=== PATIENT | male | born 1940 | race Caucasian/White ===

== ENCOUNTER 2017-04-07 05:50 | Day surgery (SDC) | payer MEDICARE, BC ==
[2017-04-07] MEDS ORDERED: Lactated Ringers 1,000 ML IV SCH (07:00)
[2017-04-07] MEDS ORDERED: Versed 2 MG/2 ML Injection IV ONE (08:00)
[2017-04-07] MEDS ORDERED: DIPRIVAN 200 MG/20 ML IV ONE (08:00)
--- NOTE | 2017-04-07 09:31 | OP ---
SURGERY DATE: 04/07/17 SURGERY TIME: 755 PREOPERATIVE DIAGNOSIS: 1. SCREENING EXAM. POSTOPERATIVE DIAGNOSIS: 1. SMALL POLYP. 2. SIGMOID DIVERTICULOSIS. PROCEDURE: 1. Colonoscopy with biopsy. SURGEON: Dr. Paz. ANESTHESIA: MAC. Medications given by the Anesthesia Department. BRIEF HISTORY: The patient is a 77 y/o WM patient presenting now for a screening colonoscopy. He was appraised of the risks of the procedure including the risk of perforation, phlebitis, untoward reaction to medication, bleeding, and missed lesions. The patient verbalized his understanding and desired to have the procedure performed. DESCRIPTION OF PROCEDURE: The patient was given the medications by the Anesthesia Department. He had continuous pulse oximetry, ECG monitoring, intermittent BP monitoring, and end tidal CO2 monitoring during the examination. He was placed in the left lateral decubitus position. A digital rectal examination was performed and revealed normal anal sphincter tone, no masses, and a normal prostate. The flexible Olympus pediatric colonoscope was used to intubate the rectum. A view of the colon was developed sequentially to the cecum. Upon insertion and withdrawal, including a retroflex view in the rectum, was noted 1 small polyps in the transverse colon. This was biopsied using cold biopsy technique. There was noted also to be mild sigmoid diverticulosis. Otherwise, no other mucosal lesions were encountered. The scope was removed from the patient who tolerated the procedure well and was sent back to OP recovery in good condition. The prep was noted to be fair to good.
[2017-04-07 10:59] VITALS: PULSE 63; O2SAT 94
[2017-04-07 11:07] VITALS: BP 115/64
== END 2017-04-07 10:00 | disposition home or self-care (01) ==
LOC: SDC 05:50
PROVIDERS: ATTEND Family Medicine
PROC: 0DBL8ZX Excision of Transverse Colon, Via Natural or Artificial Opening Endoscopic, Diagnostic (ICD-10-PCS; principal; 2017-04-07)
DX: D12.3 Benign neoplasm of transverse colon (principal); Z12.11 Encounter for screening for malignant neoplasm of colon; K57.30 Diverticulosis of large intestine without perforation or abscess without bleeding
CPT/HCPCS: 00810; 36415; 88305; 99100; J2250; J2704

== ENCOUNTER 2018-11-26 12:05 | Observation (INO) | payer MEDICARE, BC ==
[2018-11-26] MEDS ORDERED: Nitrostat 0.4 MG (ED) SL ONE ×2 (12:46→13:32)
[2018-11-26] MEDS ORDERED: BABY ASPIRIN 81 MG CHEW PO ONE (12:46)
[2018-11-26] MEDS ORDERED: NITRO-BID 2% UD PACKETS TOP ONE (12:46)
--- NOTE | 2018-11-26 12:49 | ERPHSYRPT ---
- History of Present Illness Time Seen by Provider: 11/26/18 12:34 Historian: patient Exam Limitations: clinical condition Patient Subjective Stated Complaint: pt brought from [facility] for pain to left side of chest that radiates up neck and down left arm, pt had bypass 2 months ago and is in cardiac rehab, he states pain started 3 days ago getting worse gradually, co slight sob with pain Triage Nursing Assessment: pt alert, arrived per wc, resp easy, skin w/d/p. chest clear, slight edema to lower legs Physician History: PATIENT WITH A HISTORY OF HYPERTENSION, TYPE 2 DIABETES, CORONARY ARTERY DISEASE , PREVIOUS CORONARY ARTERY BYPASS GRAFTS 2009, RECENT STENT 09/2018 COMPLAINS OF CHEST PAIN SHARP DISCOMFORT WHILE IN CARDIAC REHAB TODAY, HAS RADIATION OF PAIN TO LEFT ARM, PAIN SCALE 7/10. DENIES ASSOCIATED DIAPHORESIS AND PALPITATIONS. HAS OCCASIONAL DYSPNEA. Timing/Duration: today Activities at Onset: activity Quality: sharpness, stabbing Location: substernal Chest Pain Radiation: arm Severity of Pain-Max: moderate Severity of Pain-Current: moderate Modifying Factors: Improves With: nothing Associated Symptoms: denies symptoms Prior Chest Pain/Cardiac Workup: cardiac cath Nitro Today/Relief: no nitro taken today Aspirin Treatment Today: 81 mg x 4, provided by ED Allergies/Adverse Reactions: No Known Drug Allergies Allergy (Verified 11/26/18 12:17) Home Medications: Aspirin [Aspir-Low] 81 mg PO DAILY 06/15/16 [History] Metformin HCl 500 mg [Glucophage 500 MG] 500 mg PO BID 06/15/16 [History] Potassium Chloride 10 Meq Tab* [Klor Con 10 MEQ] 20 meq PO DAILY 06/15/16 [ History] Vitamin B Complex 1 each PO DAILY 04/03/17 [History] Atorvastatin Calcium [Lipitor] 40 mg DAILY 11/26/18 [History] Carvedilol 3.125 mg [Coreg 3.125 MG] 3.125 mg DAILY 11/26/18 [History] Clopidogrel Bisulfate [Clopidogrel] 75 mg DAILY 11/26/18 [History] Famotidine 20 mg [Pepcid 20 MG] 20 mg DAILY 11/26/18 [History] Glipizide [Glipizide ER] 5 mg DAILY 11/26/18 [History] Hx Tetanus, Diphtheria Vaccination/Date Given: Yes Hx Influenza Vaccination/Date Given: Yes Hx Pneumococcal Vaccination/Date Given: Yes Immunizations Up to Date: No - Review of Systems Constitutional: No Fever, No Chills Eyes: No Symptoms Ears, Nose, & Throat: No Symptoms Respiratory: No Symptoms, No Cough, No Dyspnea Cardiac: No Chest Pain, No Edema, No Syncope Abdominal/Gastrointestinal: No Abdominal Pain, No Nausea, No Vomiting, No Diarrhea Genitourinary Symptoms: No Symptoms, No Dysuria Musculoskeletal: No Symptoms, No Back Pain, No Neck Pain Skin: No Rash Neurological: No Dizziness, No Focal Weakness, No Sensory Changes Psychological: No Symptoms Endocrine: No Symptoms All Other Systems: Reviewed and Negative - Past Medical History Pertinent Past Medical History: Yes Neurological History: Migraines ENT History: No Pertinent History Cardiac History: Coronary Artery Disease, Hypertension, Myocardial Infarction ( [place]) Respiratory History: No Pertinent History Endocrine Medical History: Diabetes Type II Musculoskeletal History: Arthritis GI Medical History: GERD History: No Pertinent History Psycho-Social History: No Pertinent History Male Reproductive Disorders: No Pertinent History - Past Surgical History Past Surgical History: Yes Neuro Surgical History: No Pertinent History Cardiac: CABG, Cardiac Catheterization, Cardiac Stent Respiratory: No Pertinent History Gastrointestinal: Cholecystectomy Genitourinary: No Pertinent History Musculoskeletal: No Pertinent History, Other Male Surgical History: No Pertinent History Other Surgical History: BACK SURGERY-- - Social History Smoking Status: Never smoker Exposure to second hand smoke: No Drug Use: none Patient Lives Alone: No - Nursing Vital Signs Nursing Vital Signs: Initial Vital Signs Pulse Rate 100 H 11/26/18 12:08 Pain Scale Pain Intensity 6 - Physical Exam General Appearance: no apparent distress, alert Eye Exam: PERRL/EOMI, eyes nml inspection Ears, Nose, Throat Exam: normal ENT inspection, moist mucous membranes Neck Exam: normal inspection, non-tender, supple, full range of motion Respiratory Exam: normal breath sounds, lungs clear, No respiratory distress Cardiovascular Exam: regular rate/rhythm, normal heart sounds Gastrointestinal/Abdomen Exam: soft, normal bowel sounds, No tenderness, No mass Back Exam: normal inspection, No CVA tenderness, No vertebral tenderness Extremity Exam: normal inspection, normal range of motion Neurologic Exam: alert, oriented x 3, cooperative, normal mood/affect, sensation nml, No motor deficits Skin Exam: normal color, warm, dry - Course EKG Interpreted by Me: RATE, Sinus Rhythm, Right [place] Deviation, 1st degree AV Block - Radiology Exams Chest X-ray Interpretation: Discussed w/ radiologist, Negative Ordered Tests: Active Orders 24 hr Category Date Time Status Bench Worker Apprentice STAT Care 11/26/18 12:47 Active EKG-ER Only STAT Care 11/26/18 12:46 Active Oxygen-ED Only Nasal Cannula 2 lpm Care 11/26/18 12:46 Active CHEST 1 VIEW (PORTABLE) Stat Exams 11/26/18 12:46 Completed CHEST WITH CONTRAST [CT] Stat Exams 11/26/18 13:39 Completed CBC W DIFF Stat Lab 11/26/18 12:30 Completed CMP Stat Lab 11/26/18 12:30 Completed D-DIMER QUANTITATION Stat Lab 11/26/18 12:30 Completed MAGNESIUM Stat Lab 11/26/18 12:30 Completed NT PRO BNP Stat Lab 11/26/18 12:30 Completed PROTIME WITH INR Stat Lab 11/26/18 12:30 Completed TROPONIN Q3H Lab 11/26/18 12:30 Completed TROPONIN Q3H Lab 11/26/18 15:55 Completed TROPONIN Q3H Lab 11/26/18 19:00 Ordered TROPONIN Q3H Lab 11/26/18 22:00 Ordered TROPONIN Q3H Lab 11/27/18 01:00 Ordered Medication Summary Generic Name Dose Route Start Last Admin Trade Name Freq PRN Reason Stop Dose Admin Sodium Chloride 1,000 mls @ 20 mls/hr 11/26/18 13:00 11/26/18 13:35 Sodium Chloride 0.9% 1000 Ml IV 12/26/18 12:59 20 mls/hr .Q24H GLORIA Administration Discontinued Medications Generic Name Dose Route Start Last Admin Trade Name Freq PRN Reason Stop Dose Admin Aspirin 324 mg 11/26/18 12:46 11/26/18 13:34 Baby Aspirin 81 Mg Chew PO 11/26/18 12:47 324 mg STAT ONE Administration Aspirin Confirm 11/26/18 13:32 Baby Aspirin 81 Mg Chew Administered 11/26/18 13:33 Dose 324 mg .ROUTE .STK-MED ONE Nitroglycerin 0.4 mg 11/26/18 12:46 11/26/18 13:34 Nitrostat 0.4 Mg (Ed) SL 11/26/18 12:47 0.4 mg STAT ONE Administration Nitroglycerin 1 gm 11/26/18 12:46 11/26/18 13:35 Nitro-Bid 2% Ud Packets TOP 11/26/18 12:47 1 gm STAT ONE Administration Nitroglycerin Confirm 11/26/18 13:32 Nitro-Bid 2% Ud Packets Administered 11/26/18 13:33 Dose 1 gm .ROUTE .STK-MED ONE Nitroglycerin Confirm 11/26/18 13:32 Nitrostat 0.4 Mg (Ed) Administered 11/26/18 13:33 Dose 0.4 mg SL .STK-MED ONE Lab/Rad Data: Laboratory Result Diagrams 11/26/18 12:30 11/26/18 12:30 Laboratory Results 11/26/18 11/26/18 11/26/18 Range/Units 15:55 12:30 12:30 WBC (4.0-10.5) K/mm3 RBC (4.1-5.6) M/mm3 Hgb (12.5-18.0) gm/dl Hct (42-50) % MCV (78-100) fl MCH (26-32) pg MCHC (32-36) g/dl RDW (11.5-14.0) % Plt Count (150-450) K/mm3 MPV (6-9.5) fl Gran % (36.0-66.0) % Eos # (Auto) (0-0.5) Absolute Lymphs (auto) (1.0-4.6) Absolute Monos (auto) (0.0-1.3) Lymphocytes % (24.0-44.0) % Monocytes % (0.0-12.0) % Eosinophils % (0.00-5.0) % Basophils % (0.0-0.4) % Absolute Granulocytes (1.4-6.9) Basophils # (0-0.4) PT 13.6 H (8.83-12.87) SECONDS INR 1.17 (0.8-3.0) D-Dimer 582 H* (215-500) ng/mL Sodium (137-145) mmol/L Potassium (3.5-5.1) mmol/L Chloride (98-107) mmol/L Carbon Dioxide (22-30) mmol/L Anion Gap (5-15) MEQ/L BUN (9-20) mg/dL Creatinine (0.66-1.25) mg/dL Estimated GFR ML/MIN Glucose (74-106) mg/dL Calcium (8.4-10.2) mg/dL Magnesium (1.6-2.3) mg/dL Total Bilirubin (0.2-1.3) mg/dL AST (17-59) U/L ALT (0-50) U/L Alkaline Phosphatase (38-126) U/L Troponin I 0.026 0.012 (0.000-0.034) ng/mL NT-Pro-B Natriuret Pep (0-1800) pg/mL Serum Total Protein (6.3-8.2) g/dL Albumin (3.5-5.0) g/dL 11/26/18 11/26/18 Range/Units 12:30 12:30 WBC 5.8 (4.0-10.5) K/mm3 RBC 4.16 (4.1-5.6) M/mm3 Hgb 13.1 (12.5-18.0) gm/dl Hct 40.2 L (42-50) % MCV 96.6 (78-100) fl MCH 31.5 (26-32) pg MCHC 32.6 (32-36) g/dl RDW 13.0 (11.5-14.0) % Plt Count 140 L (150-450) K/mm3 MPV 10.3 H (6-9.5) fl Gran % 55.3 (36.0-66.0) % Eos # (Auto) 0.30 (0-0.5) Absolute Lymphs (auto) 1.56 (1.0-4.6) Absolute Monos (auto) 0.71 (0.0-1.3) Lymphocytes % 27.0 (24.0-44.0) % Monocytes % 12.3 H (0.0-12.0) % Eosinophils % 5.2 H (0.00-5.0) % Basophils % 0.2 (0.0-0.4) % Absolute Granulocytes 3.20 (1.4-6.9) Basophils # 0.01 (0-0.4) PT (8.83-12.87) SECONDS INR (0.8-3.0) D-Dimer (215-500) ng/mL Sodium 139 (137-145) mmol/L Potassium 4.4 (3.5-5.1) mmol/L Chloride 104 (98-107) mmol/L Carbon Dioxide 23 (22-30) mmol/L Anion Gap 16.6 H (5-15) MEQ/L BUN 17 (9-20) mg/dL Creatinine 1.16 (0.66-1.25) mg/dL Estimated GFR > 60.0 ML/MIN Glucose 180 H (74-106) mg/dL Calcium 9.4 (8.4-10.2) mg/dL Magnesium 1.9 (1.6-2.3) mg/dL Total Bilirubin 0.80 (0.2-1.3) mg/dL AST 55 (17-59) U/L ALT 50 (0-50) U/L Alkaline Phosphatase 135 H (38-126) U/L Troponin I (0.000-0.034) ng/mL NT-Pro-B Natriuret Pep 1020 (0-1800) pg/mL Serum Total Protein 7.3 (6.3-8.2) g/dL Albumin 4.1 (3.5-5.0) g/dL - Progress Progress Note: 11/26/18 16:47 ADMINISTERED ASPIRIN 81MG X 4, NTG 0.4MG SL, MARKED RELIEF IN PAIN, 1 INCH NITROPASTE APPLIED TO CHEST WALL Discussed with : Jackson (DISCUSSED WITH DR MAIN [id number] FOR OBSERVATION) - Departure Time of Disposition: 16:51 Departure Disposition: Observation Clinical Impression: ACUTE CHEST PAIN Condition: Stable Critical Care Time: No Referrals: RIANNA MAIN [Primary Care Provider] -
[2018-11-26] MEDS ORDERED: Sodium Chloride 0.9% 1000 ML 1,000 ML IV SCH (13:00)
[2018-11-26 13:14] LABS: INR 1.17 (0.8-3.0); PROTIME 13.6 SECONDS (8.83-12.87)
[2018-11-26 13:18] LABS: BASOPHIL % 0.2 % (0.0-0.4); Basophil (Absolute #) 0.01 (0-0.4); Eosinophil % 5.2 % (0.00-5.0); Granulocytes % 55.3 % (36.0-66.0); Hematocrit 40.2 % (42-50); Hemoglobin 13.1 gm/dl (12.5-18.0); Lymphocyte (Absolute #) 1.56 (1.0-4.6); Mean Cell Volume 96.6 fl (78-100); Mean Corpuscular Hemoglobin 31.5 pg (26-32); Mean Corpuscular Hgb Concent. 32.6 g/dl (32-36); Mean Platelet Volume 10.3 fl (6-9.5); Monocyte (Absolute #) 0.71 (0.0-1.3); Monocytes % 12.3 % (0.0-12.0); Platelet Count 140 K/mm3 (150-450); Red Blood Count 4.16 M/mm3 (4.1-5.6); White Blood Count 5.8 K/mm3 (4.0-10.5)
[2018-11-26 13:27] LABS: ALBUMIN 4.1 g/dL (3.5-5.0); ALKALINE PHOSPHATASE 135 U/L (38-126); ANION GAP 16.6 MEQ/L (5-15); BLOOD UREA NITROGEN 17 mg/dL (9-20); CHLORIDE 104 mmol/L (98-107); Calcium 9.4 mg/dL (8.4-10.2); Carbon Dioxide 23 mmol/L (22-30); Creatinine 1 1.16 mg/dL (0.66-1.25); Glucose 180 mg/dL (74-106); MAGNESIUM 1.9 mg/dL (1.6-2.3); NT PRO BNP 1020 pg/mL (0-1800); Potassium 4.4 mmol/L (3.5-5.1); SGOT/AST 55 U/L (17-59); SGPT/ALT 50 U/L (0-50); SODIUM 139 mmol/L (137-145); Total Protein 7.3 g/dL (6.3-8.2)
[2018-11-26] MEDS ORDERED: BABY ASPIRIN 81 MG CHEW ONE (13:32)
[2018-11-26] MEDS ORDERED: Sodium Chloride 0.9% 1000 ML 1,000 ML ONE (13:32)
[2018-11-26] MEDS ORDERED: NITRO-BID 2% UD PACKETS ONE (13:32)
--- NOTE | 2018-11-26 13:34 | XRAY ---
Indication: Chest pain. Comparison: April 05, 2014. Portable chest remains clear with incidental right midlung calcified granuloma. Heart is not enlarged again with CABG surgery. Bony thorax intact again with mild degenerative changes. Impression: Stable nonacute chest with chronic features.
--- NOTE | 2018-11-26 14:43 | XRAY ---
Indication: Left chest and left arm pain. Elevated d-dimer. Recent cardiac stent placement. Multiple contiguous axial images obtained through the chest using 80 cc Isovue 370 contrast and PE protocol. Comparison: None There is good opacification of the pulmonary arteries to include lobar and segmental branches. No filling defect or pulmonary embolus. Heart is not enlarged and demonstrates previous CABG surgery. Aorta is mildly atherosclerotic without aneurysm/dissection. Distal aorta is tortuous. Tiny right hilar calcified nodes. No pathologic mediastinal/hilar lymphadenopathy. Small hiatal hernia. Examination of the lung parenchyma demonstrates mild scattered bilateral fibrosis/scarring. Small right upper lobe calcified granuloma. No suspicious pulmonary mass, infiltrate, or effusion. Bony thorax intact with mild/moderate degenerative changes throughout the spine. Limited upper abdomen demonstrates cirrhotic appearing liver without ascites, 12.5 cm splenomegaly, and cholecystectomy clips. Impression: 1. Negative pulmonary embolus. No acute cardiopulmonary abnormalities. 2. Scattered fibrosis/scarring and evidence for old granulomatous disease. 3. Incidental small hiatal hernia, cirrhotic appearing liver, and splenomegaly. CT DI 22.97
[2018-11-26] MEDS ORDERED: MILK OF MAGNESIA 30 ML PO PRN (16:49)
[2018-11-26] MEDS ORDERED: MAALOX ES 30 ML UNIT DOSE PO PRN (16:49)
[2018-11-26] MEDS ORDERED: Senokot-S Tablet PO PRN (16:49)
[2018-11-26] MEDS ORDERED: Nitrostat 0.4 MG Tablet SL PRN (16:49)
[2018-11-26] MEDS ORDERED: TYLENOL 325 MG PO PRN (16:49)
[2018-11-26] MEDS ORDERED: Zofran 4 MG/2 ML VIAL IV PRN (16:49)
[2018-11-26] MEDS ORDERED: MORPHINE SULFATE 2 MG INJ IV PRN (16:52)
[2018-11-26] MEDS ORDERED: HOLD METFORMIN PRODUCTS FOR 48 HOURS MC SCH (17:30)
[2018-11-26] MEDS ORDERED: NovoLOG Insulin SQ PRN (17:57)
[2018-11-26] MEDS ORDERED: Pepcid 20 MG PO SCH (22:00)
[2018-11-26] MEDS: Coreg 3.125 MG PO SCH (22:25)
[2018-11-27] MEDS ORDERED: Glucotrol Xl 5 MG PO SCH (09:00)
[2018-11-27] MEDS ORDERED: Klor Con 10 MEQ PO SCH (10:00)
[2018-11-27] MEDS ORDERED: Ecotrin 325 MG PO SCH (10:00)
[2018-11-27] MEDS ORDERED: ECOTRIN 81 MG PO SCH (10:00)
[2018-11-27] MEDS ORDERED: PLAVIX 75 MG Tablet PO SCH (10:00)
[2018-11-27] MEDS ORDERED: Pepcid 20 MG PO SCH (10:00)
[2018-11-27] MEDS ORDERED: Coreg 3.125 MG PO SCH (10:00)
[2018-11-27] MEDS ORDERED: ZOCOR 20MG PO SCH (10:00)
[2018-11-27] MEDS: Coreg 3.125 MG PO SCH (11:27)
--- NOTE | 2018-11-27 14:03 | PCM.NOTE ---
Date and Time: 11/27/18 1358 Subjective Assessment: Patient reports he slept a little bit last night. He had some ankle cramps. He continues to have some soreness in his shoulders bilat. He ate some breakfast and denies any dyspnea or nausea. - Review of Systems Constitutional: No Symptoms Eyes: No Symptoms Ears, Nose, & Throat: No Symptoms Respiratory: No Symptoms Cardiac: No Symptoms Abdominal/Gastrointestinal: No Symptoms Genitourinary Symptoms: No Symptoms Musculoskeletal: Other (left shoulder pain) Skin: No Symptoms Objective Exam General Appearance: no apparent distress, alert, other ( at bedside) Neurologic Exam: alert, cooperative, normal mood/affect Skin Exam: normal color, warm, dry Respiratory Exam: normal breath sounds, No lungs clear, No crackles/rales, No rhonchi, No wheezing Cardiovascular Exam: regular rate/rhythm, normal heart sounds, No murmur, No friction rub, No gallop Gastrointestinal/Abdomen Exam: soft, normal bowel sounds, No tenderness, No distention, No mass, No guarding Extremity Exam: normal inspection, other (no c/c/e) OBJECTIVE DATA Vital Signs: Vital Signs - 24 hr Temp Pulse Resp BP Pulse Ox 11/27/18 12:21 96 11/27/18 12:00 97.6 F 50 L 16 150/75 97 11/27/18 08:00 97.6 F 46 L 16 106/53 95 11/27/18 04:20 97.7 F 54 L 24 114/65 94 L 11/27/18 00:14 97.6 F 58 L 16 111/62 97 11/26/18 21:32 96 11/26/18 20:00 97.3 F 64 16 110/64 96 11/26/18 17:13 97.6 F 51 L 20 119/89 96 11/26/18 16:49 97.6 F 51 L 20 119/89 96 11/26/18 15:53 76 18 113/75 98 Pain Assessment - Last Documented Pain Intensity 2 Pain Scale Used 0-10 Pain Scale Intake and Output: Intake & Output 11/25/18 11/26/18 11/27/18 11/28/18 06:59 06:59 06:59 06:59 Intake Total 960 480 Output Total 425 Balance 535 480 Weight 90.8 kg Lab Results: Accuchecks Date 11/27/18 Date 11/26/18 Time 07:30 Time 22:00 Accucheck Value: 96 Accucheck Value: 184 Lab Results-Last 24 Hours 11/26/18 11/26/18 11/26/18 Range/Units 15:55 19:00 22:20 Hemoglobin A1c (4.5-6.0) % Troponin I 0.026 0.042 H* 0.050 H* (0.000-0.034) ng/mL Triglycerides (30-150) mg/dL Cholesterol (50-200) mg/dL LDL Cholesterol (30-100) mg/dL HDL Cholesterol (40-60) mg/dL Heart Disease Risk Ratio 11/26/18 11/27/18 11/27/18 Range/Units Unknown 01:05 05:30 Hemoglobin A1c 6.47 H (4.5-6.0) % Troponin I 0.048 H* (0.000-0.034) ng/mL Triglycerides 75 (30-150) mg/dL Cholesterol 86 (50-200) mg/dL LDL Cholesterol 39 (30-100) mg/dL HDL Cholesterol 44 (40-60) mg/dL Heart Disease Risk Ratio 2.0 Radiology Exams: Radiology Procedures Category Date Time Status CHEST 1 VIEW (PORTABLE) Stat Exams 11/26/18 12:46 Completed CHEST WITH CONTRAST [CT] Stat Exams 11/26/18 13:39 Completed Assessment/Plan (1) Non-STEMI (non-ST elevated myocardial infarction) Current Visit: Yes Status: Acute Assessment & Plan: Pain has improved. Discussed earlier today with the phlebotomist associate covering for Dr. Pearson, Dr. Rayshawn Sanchez. He recommended starting Ranexa to try to prevent chest pain and close follow up with Dr. Pearson. He reported with his current troponin level, he would not suggest a heart cath emergently. Patient is aware that the covering phlebotomist associate does not come to this hospital. Pt had some more pain in his left upper arm after the nitro paste was removed so will check another troponin. If it is still trending down, will try to discharge to home with close follow up with phlebotomist associate and to return to ER if any worsening symptoms or concerns. EKG this AM with HR 47, Q waves II, III, avF and nonspecific T-wave changes. Continue statin and plavix and beta raymundo. Code(s): I21.4 - NON-ST ELEVATION (NSTEMI) MYOCARDIAL INFARCTION (2) Essential hypertension Current Visit: Yes Status: Acute Assessment & Plan: Well controlled. Code(s): I10 - ESSENTIAL (PRIMARY) HYPERTENSION (3) Mixed hyperlipidemia Current Visit: Yes Status: Acute Assessment & Plan: Very well controlled. Code(s): E78.2 - MIXED HYPERLIPIDEMIA (4) DM w/o complication type II Current Visit: Yes Status: Acute Assessment & Plan: Well controlled. Code(s): E11.9 - TYPE 2 DIABETES MELLITUS WITHOUT COMPLICATIONS
[2018-11-27 16:42] VITALS: BP 129/71; PULSE 52; O2SAT 97
[2018-11-27] MEDS ORDERED: Ranexa 500 MG PO SCH (22:00)
--- NOTE | 2018-11-29 10:18 | HP ---
HISTORY OF PRESENT ILLNESS: This is a 78 year-old patient of Dr. Paz'rizwana who presented to the emergency department today after being in cardiac rehab where he developed some left upper arm pain as well as pain into the left side of his neck and back, down to the left side of his chest. Employees in cardiac rehab suggested he go to [facility] but they brought him to the emergency department. The patient states the pain is better now that Nitro seemed to help that they gave him in the emergency room and then also he has Nitro paste in place. He has a significant history of coronary artery disease with a bypass around 2009 and another one in 2016, stents most recently placed 10/18/2018 by a fuel cell engineer at [facility] who was covering for Dr. Pearson and Dr. Rayshawn Sanchez at [facility]. His who is at the bedside reports that one artery was 100% blocked and they could not get to it and told him it was rerouting on its own. He does cardiac rehab from 1100 hours to 12 in the morning and started to have pain at the end of this rehab. He reports his pain is worse when he tries to lift his left arm up. He also has a little bit of pain in his right shoulder as well but notes that he had rotator cuff problems with that shoulder eight to nine years ago. REVIEW OF SYSTEMS: He denies any fever. No cough. No nausea. No diaphoresis. He had a little bit of dyspnea. No abdominal pain. PAST MEDICAL HISTORY: Coronary artery disease, hypertension, diabetes mellitus type 2, arthritis, gastroesophageal reflux disease. PAST SURGICAL HISTORY: Cholecystectomy, coronary artery bypass graft x2, cardiac stents, back surgery. MEDICATIONS: Please see the medication reconciliation form which I reviewed. ALLERGIES: NKDA. SOCIAL HISTORY: He smoked a little bit when he was a teenager. He was exposed to secondhand smoke from a previous . He denies any alcohol use. He has been to his current for three years. FAMILY HISTORY: His mother is and had cancer. His father is and had cancer and heart problems. He has a 52 year-old daughter who is living that has cancer. PHYSICAL EXAMINATION: VITAL SIGNS: Temperature current 97.3F, temperature max 97.6F, heart rate 51 to 82, respiratory rate 16 to 20, blood pressure 110 to 132 over 64 to 89, weight 89.6 kg. Oxygen saturation 96 to 98% on room air. GENERAL: The patient is a pleasant talkative man lying in bed in no acute distress. His is at the bedside. CVS: He has a regular rate and rhythm. No murmurs, gallops or rubs are appreciated. CHEST: Clear to auscultation bilaterally. No crackles or wheezes. ABDOMEN: Soft, nontender, nondistended with normal bowel sounds. EXTREMITIES: No clubbing, cyanosis or edema. He has +2 radial and dorsalis pedis pulses bilaterally. Strength is 5/5 in hands and feet bilaterally. SKIN: Warm, dry and intact. LABORATORY DATA AND TESTS: PLT count was 140,000. International normalized ratio 1.17. D-dimer 582. CMP glucose 180. Hemoglobin A1C 6.47. He has had three troponins, the first was 0.012, second 0.026 and the last 0.042. His EKG sinus bradycardia with a first degree AV block, nonspecific T-wave changes, T-wave inversions in II, III and aVF, T-wave flattened in V4-V6. Chest CT was negative for pulmonary embolism. Please see the radiologist report for full details. Chest x-ray was read as stable nonacute chest with chronic features. ASSESSMENT AND PLAN: 1) CHEST PAIN: He is currently on chest pain pathway. His last troponin was slightly elevated. I asked the nurses to call the fuel cell engineer covering for his fuel cell engineer. The patient regularly sees Dr. Pearson but Dr. Rayshawn Sanchez was covering. He instructed the nurse to call back if the troponin was greater than 0.5. The patient reports his pain is fairly well controlled and a 1 on a scale from 0 to 10 with 10 being the worst pain. Nitro is in place and he is tolerating this well. The patient has had aspirin. He is on a beta raymundo and a statin. He also takes Plavix daily. 2) ELEVATED TROPONIN: This could be due to damage to his heart muscles such as non-ST elevation myocardial infarction or increased strain on his heart during cardiac rehab, will continue to follow to see if this is trending up or down. I discussed with the patient that Dr. Rayshawn Sanchez does not come to this hospital but has been contacted and at this time is comfortable with him staying here at the hospital and being contacted if his troponin goes above 0.5. I offered transfer to the patient if he wanted to see a fuel cell engineer face to face but the patient prefers to stay here at this time. 3) DIABETES MELLITUS TYPE 2: Currently well controlled, will hold his metformin since he had CT scan with IV contrast and use low dose sliding scale of insulin. 4) ARTHRITIS: He has Tylenol ordered as needed that he can take. 5) HYPERTENSION: His blood pressure is currently well controlled.
== END 2018-11-27 17:40 | disposition home or self-care (01) ==
LOC: ED 12:05 → MED SURG 17:08
PROVIDERS: ADMIT Family Medicine; ATTEND Family Medicine
DX: I21.4 Non-ST elevation (NSTEMI) myocardial infarction (principal); R77.8 Other specified abnormalities of plasma proteins; E11.9 Type 2 diabetes mellitus without complications; M19.90 Unspecified osteoarthritis, unspecified site; I10 Essential (primary) hypertension; M25.512 Pain in left shoulder; M25.511 Pain in right shoulder; E78.2 Mixed hyperlipidemia; Z95.1 Presence of aortocoronary bypass graft; Z79.899 Other long term (current) drug therapy
CPT/HCPCS: 36415; 71045; 71260; 80053; 80061; 82962; 83036; 83721; 83735; 83880; 84484; 85025; 85379; 85610; 93005; 93041; 93268; 94760; 96360; 96361; 99285; G0378; A9270-GY

== ENCOUNTER 2021-10-31 11:45 | Day surgery (SDC) | payer MEDICARE, BC ==
--- NOTE | 2021-10-31 07:41 | HP ---
DATE OF SURGERY: 10/31/2021 HISTORY OF PRESENT ILLNESS: The patient presents with complaints of a left breast mass. It is palpable on physical exam. The patient had some tenderness to this area for a few months. PAST MEDICAL HISTORY: Coronary artery disease, cardiac stent, coronary artery bypass graft, hypertension, hyperlipidemia, diabetes. PAST SURGICAL HISTORY: Coronary artery bypass graft status post PTCA. Back surgery. ALLERGIES: BRILINTA. CRESTOR. LIPITOR. LIVALO. METOPROLOL. RANEXA. MEDICATIONS: Metformin, glipizide, meclizine, potassium, famotidine, Coreg, Plavix, loratadine, Zofran, Praluent Pen. FAMILY HISTORY: None indicated. SOCIAL HISTORY: None indicated. REVIEW OF SYSTEMS: CONSTITUTIONAL: Denies fever or chills. CHEST: Denies shortness of breath. CVS: Denies chest pain. ABDOMEN: Denies abdominal pain. PHYSICAL EXAMINATION: GENERAL: No acute distress. CHEST: Nonlabored. No shortness of breath. CVS: Regular rate and rhythm. ABDOMEN: Soft, nontender. BREAST: Left palpable breast mass. IMPRESSION: Left breast mass. PLAN: Left breast mastectomy with Dr. Davon Verdin. As dictated by Caroline Gambino NP.
[~2021-10-31 11:45] MED LIST: Sensorcaine 0.25% 10 ML ONE
[2021-10-31] MEDS ORDERED: Lactated Ringers 1,000 ML IV ONE (11:59)
[2021-10-31 12:27] LABS: Hematocrit 40.9 % (42-50); Hemoglobin 13.1 gm/dl (12.5-18.0); Mean Cell Volume 98.1 fl (78-100); Mean Corpuscular Hemoglobin 31.4 pg (26-32); Mean Platelet Volume 9.9 fl (7.5-11.0); Platelet Count 141 K/mm3 (150-450); Red Blood Count 4.17 M/mm3 (4.1-5.6); Red Cell Distribution Width 12.7 % (11.5-14.0); White Blood Count 5.2 K/mm3 (4.0-10.5)
[2021-10-31] MEDS ORDERED: Lactated Ringers 1,000 ML IV SCH (12:30)
[2021-10-31] MEDS ORDERED: CEFAZOLIN 2 GM-D5W BAG** 2 GM/50 ML ML IV SCH (12:30)
[2021-10-31 12:36] LABS: ALBUMIN 3.8 g/dL (3.5-5.0); ALKALINE PHOSPHATASE 185 U/L (38-126); ANION GAP 8.8 MEQ/L (5-15); BLOOD UREA NITROGEN 13 mg/dL (9-20); CHLORIDE 106 mmol/L (98-107); Calcium 8.7 mg/dL (8.4-10.2); Carbon Dioxide 26 mmol/L (22-30); Creatinine 1 0.97 mg/dL (0.66-1.25); EST GLOMERULAR FILTRATION RATE > 60.0 ML/MIN; Glucose 143 mg/dL (74-106); Potassium 4.4 mmol/L (3.5-5.1); SGOT/AST 39 U/L (17-59); SGPT/ALT 18 U/L (0-50); SODIUM 136 mmol/L (137-145); Total Protein 7.3 g/dL (6.3-8.2)
[2021-10-31] MEDS ORDERED: Sensorcaine 0.25% 10 ML ONE (13:00)
[2021-10-31] MEDS ORDERED: DIPRIVAN 200 MG/20 ML IV ONE (13:01)
[2021-10-31] MEDS ORDERED: Xylocaine-Mpf 2% 5 Ml Vial ONE (13:01)
[2021-10-31] MEDS ORDERED: Versed 2 MG/2 ML Injection ONE (13:01)
[2021-10-31] MEDS ORDERED: SUBLIMAZE 100 MCG/2 ML ONE (13:01)
[2021-10-31] MEDS ORDERED: Quelicin Fliptop 200 MG/10 ML ONE (13:56)
[2021-10-31 15:12] VITALS: PULSE 52
--- NOTE | 2021-10-31 15:23 | OP ---
SURGERY DATE/TIME: 10/31/2021 1306 PREOPERATIVE DIAGNOSIS: Left breast mass. POSTOPERATIVE DIAGNOSIS: Left breast mass. PROCEDURE: Left subcutaneous mastectomy. SURGEON: Davon Verdin M.D. LOAN SERVICING OFFICER: Carito Soto, Medical Student III. ANESTHESIA: General. COMPLICATIONS: None. CONDITION: Stable. INDICATION: The patient has an indurated mass at 3:00 and then he had some less dense material edging out of this underneath the areola. It was quite painful. He has had no biopsy to date. DESCRIPTION OF PROCEDURE: He is taken to surgery. General anesthetic. Routine prep and drape. Circum areolar incision between 12:00 and 6:00. The dense breast tissue was taken from under the areola until complete. It had been penciled out under the perimeter and this was all taken back until it was completely excised. Hemostasis obtained with electrocautery. Skin closed with 4-0 Vicryl and glue. The patient tolerated the procedure satisfactorily. Pathology pending.
[2021-10-31 15:24] VITALS: BP 143/85; O2SAT 96
== END 2021-10-31 15:30 | disposition home or self-care (01) ==
LOC: SDC 11:45
PROVIDERS: ATTEND Surgery
DX: N62 Hypertrophy of breast (principal); N63.0 Unspecified lump in unspecified breast; E11.9 Type 2 diabetes mellitus without complications; I25.10 Atherosclerotic heart disease of native coronary artery without angina pectoris; I10 Essential (primary) hypertension; E78.5 Hyperlipidemia, unspecified; Z79.899 Other long term (current) drug therapy
CPT/HCPCS: 36415; 80053; 85027; J0330; J0690; J2250; J2704; J3010

== ENCOUNTER 2022-05-14 | Observation (INO) | payer MEDICARE, BC ==
[2022-05-14] MEDS ORDERED: BABY ASPIRIN 81 MG CHEW PO ONE (00:19)
--- NOTE | 2022-05-14 00:19 | ERPHSYRPT ---
- History of Present Illness Time Seen by Provider: 05/14/22 00:14 Source: patient Exam Limitations: no limitations Physician History: Is an 82-year-old white male patient of Dr. 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 Pearson. Patient has a history of diabetes, hypertension and coronary artery disease (CABG and cardiac stents). Patient takes Plavix. Patient underwent a CAT scan of the chest on 04/17/2022 which showed multiple suspicious bilateral noncalcified nodules. In addition, there was a pancreatic body cystic mass. Both of these entities were concerning for malignancy/metastasis. Patient is aware of them and he is in the middle of a work-up for these. Last evening (05/13/2022) patient was in his recliner chair and then went to lay down and noticed some shortness of breath and bilateral bandlike chest discomfort. He was concerned about this because it persisted even when he was lying down so he came to the emergency department. Symptoms have nearly completely resolved at the time of evaluation. Timing/Duration: yesterday Activities at Onset: none Severity of Dyspnea-Max: mild Severity of Dyspnea-Current: none Possible Cause: occasional episodes Modifying Factors: Improves With: activity Associated Symptoms: intermittent, chest pain/discomfort (Bilateral bandlike achiness) Allergies/Adverse Reactions: atorvastatin [From Lipitor] Allergy (Verified 05/14/22 00:25) metoprolol Allergy (Verified 05/14/22 00:25) pitavastatin [From Livalo] Allergy (Verified 05/14/22 00:25) ranolazine [From Ranexa] Allergy (Verified 05/14/22 00:25) rosuvastatin [From Crestor] Allergy (Verified 05/14/22 00:25) ticagrelor [From Brilinta] Allergy (Verified 05/14/22 00:25) Home Medications: Metformin HCl 500 mg [Glucophage 500 MG] 500 mg PO BID 06/15/16 [History] Potassium Chloride Tab* [Klor Con] 10 meq PO DAILY 06/15/16 [History] Carvedilol 3.125 mg [Coreg 3.125 MG] 6.25 mg PO BID 11/26/18 [History] Famotidine 20 mg [Pepcid 20 MG] 20 mg PO BID 11/26/18 [History] Glipizide [Glipizide ER] 5 mg DAILY 11/26/18 [History] Hx Tetanus, Diphtheria Vaccination/Date Given: Yes Hx Influenza Vaccination/Date Given: Yes Hx Pneumococcal Vaccination/Date Given: Yes Travel Risk - International Travel Have you traveled outside of the country in past 3 weeks: No - Coronavirus Screening Are you exhibiting any of the following symptoms?: No Close contact with a COVID-19 positive Pt in past 14-21 Days: No - Review of Systems Constitutional: No Symptoms Eyes: No Symptoms Ears, Nose, & Throat: No Symptoms Respiratory: No Symptoms Cardiac: Chest Pain (Bandlike achiness bilaterally lower chest wall) Abdominal/Gastrointestinal: No Symptoms Genitourinary Symptoms: No Symptoms Musculoskeletal: No Symptoms Skin: No Symptoms Neurological: No Symptoms Psychological: No Symptoms Endocrine: No Symptoms Hematologic/Lymphatic: No Symptoms Immunological/Allergic: No Symptoms All Other Systems: Reviewed and Negative - Past Medical History Pertinent Past Medical History: Yes Neurological History: Migraines ENT History: Cataracts Cardiac History: Congenital Heart Disease, Coronary Artery Disease, Hypertension, Myocardial Infarction ([place]), Other Respiratory History: No Pertinent History Endocrine Medical History: Diabetes Type II Musculoskeletal History: Arthritis GI Medical History: Diverticulitis, GERD History: No Pertinent History Psycho-Social History: No Pertinent History Male Reproductive Disorders: No Pertinent History Other Medical History: Skin cancer, 2 CABG - Past Surgical History Past Surgical History: Yes Neuro Surgical History: No Pertinent History Cardiac: CABG, Cardiac Catheterization, Cardiac Stent Respiratory: No Pertinent History Gastrointestinal: Cholecystectomy Genitourinary: No Pertinent History Musculoskeletal: No Pertinent History, Other Male Surgical History: No Pertinent History Other Surgical History: BACK SURGERY-- - Social History Smoking Status: Never smoker Exposure to second hand smoke: No Drug Use: none Patient Lives Alone: No - Nursing Vital Signs Nursing Vital Signs: Initial Vital Signs Temperature 97.6 F 05/14/22 00:07 Pulse Rate 57 L 05/14/22 00:07 Respiratory Rate 18 05/14/22 00:07 Blood Pressure 157/81 05/14/22 00:07 O2 Sat by Pulse Oximetry 99 05/14/22 00:07 Pain Scale Pain Intensity 5 - Physical Exam General Appearance: no apparent distress, alert, anxiety Eye Exam: PERRL/EOMI, eyes nml inspection Ears, Nose, Throat Exam: hearing grossly normal, normal ENT inspection, normal pharynx Neck Exam: normal inspection, non-tender, supple, full range of motion Respiratory Exam: normal breath sounds, chest tenderness (Bandlike chest achiness lower chest wall.), lungs clear, airway intact, No respiratory distress Cardiovascular/Chest Exam: normal heart sounds, regular rate/rhythm Abdominal/Gastrointestinal Exam: soft, normal bowel sounds, No tenderness Rectal Exam: not done Extremity Exam: non-tender, normal range of motion, normal inspection Neurologic Exam: alert, oriented x 3, cooperative, 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 When compared to twelve-lead EKG dated 08/27/2021, today's VA interval is short compared to a prolonged 1 on the prior twelve-lead EKG. Otherwise there is no change.) Ordered Tests: Active Orders 24 hr Category Date Time Status Life Agent STAT Care 05/14/22 00:20 Active EKG-ER Only STAT Care 05/14/22 00:19 Active IV Insertion STAT Care 05/14/22 00:19 Active Pulse Oximetry (ED) STAT Care 05/14/22 00:19 Active ABDOMEN AND PELVIS W/0 CONTRAS [CT] Stat Exams 05/14/22 00:34 Taken CHEST WITH CONTRAST [CT] Stat Exams 05/14/22 01:05 Taken CBC W DIFF Stat Lab 05/14/22 00:35 Completed CMP Stat Lab 05/14/22 00:35 Completed D-DIMER QUANTITATIVE Stat Lab 05/14/22 00:35 Completed NT PRO BNP Stat Lab 05/14/22 00:35 Completed TROPONIN Q3H Lab 05/14/22 00:35 Completed TROPONIN Q3H Lab 05/14/22 03:21 Completed TROPONIN Q3H Lab 05/14/22 06:30 Ordered TROPONIN Q3H Lab 05/14/22 09:30 Ordered TROPONIN Q3H Lab 05/14/22 12:30 Ordered Transfer Order Routine Transfer 05/14/22 Ordered Medication Summary Discontinued Medications Generic Name Dose Route Start Last Admin Trade Name Ahsan PRN Reason Stop Dose Admin Aspirin 324 mg 05/14/22 00:19 05/14/22 00:27 Aspirin 81 Mg Tab.Chew PO 05/14/22 00:20 324 mg STAT ONE Administration Clopidogrel Bisulfate 75 mg 05/14/22 04:36 Clopidogrel Bisulfate 75 Mg Tablet PO 05/14/22 04:37 STAT ONE Enoxaparin Sodium 80 mg 05/14/22 04:36 Enoxaparin Sodium 80 Mg/0.8 Ml Syringe SQ 05/14/22 04:37 STAT ONE Lab/Rad Data: Laboratory Result Diagrams 05/14/22 00:35 05/14/22 00:35 Laboratory Results 05/14/22 05/14/22 05/14/22 Range/Units 03:21 03:21 00:35 WBC (4.0-10.5) x10^3/uL RBC (4.1-5.6) x10^6/uL Hgb (12.5-18.0) g/dL Hct (42-50) % MCV (78-100) fL MCH (26-32) pg MCHC (32-36) g/dL RDW (11.5-14.0) % Plt Count (150-450) x10^3/uL MPV (7.5-11.0) fL Gran % (36.0-66.0) % Immature Gran % (Auto) (0.00-0.4) % Nucleat RBC Rel Count (0.00-0.1) % Eos # (Auto) (0-0.5) x10^3/uL Immature Gran # (Auto) (0.00-0.03) x10^3u/L Absolute Lymphs (auto) (1.0-4.6) x10^3/uL Absolute Monos (auto) (0.0-1.3) x10^3/uL Absolute Nucleated RBC (0.00-0.01) x10^3u/L Lymphocytes % (24.0-44.0) % Monocytes % (0.0-12.0) % Eosinophils % (0.00-5.0) % Basophils % (0.0-0.4) % Absolute Granulocytes (1.4-6.9) x10^3/uL Basophils # (0-0.4) x10^3/uL D-Dimer (0.0-0.50) mg/L Sodium (137-145) mmol/L Potassium (3.5-5.1) mmol/L Chloride (98-107) mmol/L Carbon Dioxide (22-30) mmol/L Anion Gap (5-15) MEQ/L BUN (9-20) mg/dL Creatinine (0.66-1.25) mg/dL Estimated GFR ML/MIN Glucose (74-106) mg/dL Calcium (8.4-10.2) mg/dL Total Bilirubin (0.2-1.3) mg/dL AST (17-59) U/L ALT (0-50) U/L Alkaline Phosphatase (38-126) U/L Troponin I < 0.012 < 0.012 (0.000-0.034) ng/mL NT-Pro-B Natriuret Pep (0-1800) pg/mL Serum Total Protein (6.3-8.2) g/dL Albumin (3.5-5.0) g/dL Influenza Type A Ag NEGATIVE (NEGATIVE) Influenza Type B Ag NEGATIVE (NEGATIVE) RSV (PCR) NEGATIVE (Negative) SARS-CoV-2 (PCR) NEGATIVE (NEGATIVE) 05/14/22 05/14/22 05/14/22 Range/Units 00:35 00:35 00:35 WBC 5.1 (4.0-10.5) x10^3/uL RBC 3.78 L (4.1-5.6) x10^6/uL Hgb 11.9 L (12.5-18.0) g/dL Hct 37.0 L (42-50) % MCV 97.9 (78-100) fL MCH 31.5 (26-32) pg MCHC 32.2 (32-36) g/dL RDW 12.4 (11.5-14.0) % Plt Count 131 L (150-450) x10^3/uL MPV 9.9 (7.5-11.0) fL Gran % 51.3 (36.0-66.0) % Immature Gran % (Auto) 0.2 (0.00-0.4) % Nucleat RBC Rel Count 0.0 (0.00-0.1) % Eos # (Auto) 0.26 (0-0.5) x10^3/uL Immature Gran # (Auto) 0.01 (0.00-0.03) x10^3u/L Absolute Lymphs (auto) 1.48 (1.0-4.6) x10^3/uL Absolute Monos (auto) 0.70 (0.0-1.3) x10^3/uL Absolute Nucleated RBC 0.00 (0.00-0.01) x10^3u/L Lymphocytes % 29.2 (24.0-44.0) % Monocytes % 13.8 H (0.0-12.0) % Eosinophils % 5.1 H (0.00-5.0) % Basophils % 0.4 (0.0-0.4) % Absolute Granulocytes 2.59 (1.4-6.9) x10^3/uL Basophils # 0.02 (0-0.4) x10^3/uL D-Dimer 2.12 H* (0.0-0.50) mg/L Sodium 135 L (137-145) mmol/L Potassium 3.9 (3.5-5.1) mmol/L Chloride 102 (98-107) mmol/L Carbon Dioxide 28 (22-30) mmol/L Anion Gap 9.2 (5-15) MEQ/L BUN 12 (9-20) mg/dL Creatinine 0.81 (0.66-1.25) mg/dL Estimated GFR > 60.0 ML/MIN Glucose 250 H (74-106) mg/dL Calcium 8.5 (8.4-10.2) mg/dL Total Bilirubin 0.70 (0.2-1.3) mg/dL AST 36 (17-59) U/L ALT 18 (0-50) U/L Alkaline Phosphatase 239 H (38-126) U/L Troponin I (0.000-0.034) ng/mL NT-Pro-B Natriuret Pep 1130 (0-1800) pg/mL Serum Total Protein 6.7 (6.3-8.2) g/dL Albumin 3.1 L (3.5-5.0) g/dL Influenza Type A Ag (NEGATIVE) Influenza Type B Ag (NEGATIVE) RSV (PCR) (Negative) SARS-CoV-2 (PCR) (NEGATIVE) - Progress Progress: improved Air Movement: good Progress Note: 05/14/22 04:28 CTA of the chest shows low-attenuation nonocclusive thrombus within the proximal left lower lobe pulmonary artery and suspected small lingular pulmonary embolus. There is redemonstration of numerous bilateral pulmonary nodules consistent with diffuse pulmonary metastasis. There is minimal posterior pleural effusions. CAT scan of the abdomen pelvis shows multiple, small hepatic low-attenuation lesions suspicious for hepatic metastasis. Ill-defined lobulated pancreatic body mass suspicious for neoplasm.. Findings suggestive of hepatic cirrhosis Medical decision making: This patient has left-sided nonocclusive thrombus within the proximal left lower lobe pulmonary artery and suspected small lingular pulmonary embolus. I spoke with Dr. Paz who is the patient's primary care provider. We will give the patient a dose of Lovenox subcutaneously and then place the patient in observation in a monitored bed. Dr. Paz will make further recommendations when he comes into the hospital to evaluate this patient later today. I reviewed the patient history, physical findings, EKG results, and results of the lab studies and radiographic studies with Dr. Paz. The patient agrees to be placed in observation in the hospit al. Blood Culture(s) Obtained: No Antibiotics given: No Discussed with : Lindsay Counseled pt/family regarding: lab results, diagnosis, need for follow-up, rad results - Departure Departure Disposition: Observation Clinical Impression: Left pulmonary embolus, Pancreatic neoplasm, Hepatic metastasis, Pulmonary metastasis Condition: Fair Critical Care Time: No Referrals: RIANNA PAZ [Primary Care Provider] - Follow up/PCP as directed
[2022-05-14 00:39] LABS: Absolute Neutrophil Ct (ANC) 2.59 x10^3/uL (1.4-6.9); Basophil (Absolute #) 0.02 x10^3/uL (0-0.4); Eosinophil % 5.1 % (0.00-5.0); Eosinophil (Absolute #) 0.26 x10^3/uL (0-0.5); Hemoglobin 11.9 g/dL (12.5-18.0); Lymphocyte (Absolute #) 1.48 x10^3/uL (1.0-4.6); Lymphocytes % 29.2 % (24.0-44.0); Mean Cell Volume 97.9 fL (78-100); Mean Corpuscular Hemoglobin 31.5 pg (26-32); Mean Corpuscular Hgb Concent. 32.2 g/dL (32-36); Mean Platelet Volume 9.9 fL (7.5-11.0); Monocytes % 13.8 % (0.0-12.0); Neutrophil % 51.3 % (36.0-66.0); Platelet Count 131 x10^3/uL (150-450); Red Blood Count 3.78 x10^6/uL (4.1-5.6); Red Cell Distribution Width 12.4 % (11.5-14.0); White Blood Count 5.1 x10^3/uL (4.0-10.5)
[2022-05-14 01:03] LABS: ALBUMIN 3.1 g/dL (3.5-5.0); ALKALINE PHOSPHATASE 239 U/L (38-126); ANION GAP 9.2 MEQ/L (5-15); BLOOD UREA NITROGEN 12 mg/dL (9-20); CHLORIDE 102 mmol/L (98-107); Calcium 8.5 mg/dL (8.4-10.2); Carbon Dioxide 28 mmol/L (22-30); Creatinine 1 0.81 mg/dL (0.66-1.25); EST GLOMERULAR FILTRATION RATE > 60.0 ML/MIN; Glucose 250 mg/dL (74-106); NT PRO BNP 1130 pg/mL (0-1800); Potassium 3.9 mmol/L (3.5-5.1); SGOT/AST 36 U/L (17-59); SGPT/ALT 18 U/L (0-50); SODIUM 135 mmol/L (137-145); Total Protein 6.7 g/dL (6.3-8.2)
[2022-05-14] MEDS ORDERED: HOLD METFORMIN PRODUCTS FOR 48 HOURS MC SCH (01:15)
[2022-05-14 04:01] LABS: INFLUENZA A NEGATIVE (NEGATIVE); INFLUENZA B NEGATIVE (NEGATIVE); RESPIRATORY SYNCTIAL VIRUS NEGATIVE (Negative); SARS-CoV-2 Xpert Express NEGATIVE (NEGATIVE)
[2022-05-14] MEDS ORDERED: ENOXAPARIN SODIUM SQ ONE ×2 (04:36→04:53)
[2022-05-14] MEDS ORDERED: PLAVIX Tablet PO ONE (04:36)
[2022-05-14] MEDS ORDERED: PLAVIX Tablet ONE (04:53)
[2022-05-14] MEDS ORDERED: TYLENOL 325 MG PO PRN (05:13)
[2022-05-14] MEDS ORDERED: Zofran 4 MG/2 ML VIAL IV ONE (05:13)
[2022-05-14] MEDS ORDERED: HUMULIN R SQ PRN (05:13)
--- NOTE | 2022-05-14 09:05 | XRAY ---
Indication: Post operative pain. Pancreas/liver biopsy 5 days ago. Elevated d-dimer. Multiple contiguous axial images obtained through the chest using 100 cc Isovue 370 contrast and PE protocol. Comparison: April 17, 2022 There is good opacification of the pulmonary arteries to includes the lobar and segmental branches. Left lower lobe pulmonary artery demonstrates minimal eccentric nonoccluding pulmonary embolus. No other pulmonary embolus. Heart not enlarged again with CABG. Aorta remains mildly arteriosclerotic without aneurysm/dissection. No pathologic mediastinal/hilar lymphadenopathy. Stable small hiatal hernia. Lungs again hyperinflated with mild bilateral scattered fibrosis/scarring. There remains multiple bilateral tiny and small noncalcified nodules, several again appearing irregular and spiculated concerning for metastasis. New tiny bilateral pleural effusions. Bony thorax intact again with osteopenia, degenerative changes about the spine, sternotomy wires. CT abdomen/pelvis reported separately. Impression: 1. Minimal nonoccluding left lower lobe pulmonary embolus. 2. Grossly stable multiple bilateral suspicious noncalcified nodules again worrisome for metastasis. New tiny bibasilar effusions. 3. Stable small hiatal hernia and chronic bony findings. Comment: Preliminary interpretation made by [facility]. No critical discrepancy.
--- NOTE | 2022-05-14 09:13 | XRAY ---
Indication: Post operative pain. Pancreas/liver biopsy 5 days ago. Elevated d-dimer. Multiple contiguous axial images obtained through the abdomen and pelvis without contrast. Comparison: None CT chest reported separately. Noncontrasted stomach and bowel loops nonobstructed with scattered colonic diverticulosis greatest sigmoid colon. Spleen is enlarged measuring 13.7 cm with tiny calcified splenic granuloma. Liver appears cirrhotic with multiple subtle hypodense lesions throughout worrisome for metastasis. Previous cholecystectomy. No free fluid/air. Body of pancreas demonstrates 2 tiny recent MRI proven cystic masses, largest 1.3 cm. Right kidney demonstrates 5 mm nonobstructing calculus and 2 cm exophytic cyst. Remaining liver, pancreas, spleen, adrenal glands, kidneys, ureters, and bladder are unremarkable for noncontrast exam. Diffuse scattered vascular calcifications with 3 x 3 cm distal AAA. Osseous structures intact with osteopenia, moderate/advanced multilevel degenerative spondylosis, moderate double curvature scoliosis, and mild degenerative changes both hips. Impression: 1. MRI proven pancreatic cystic masses. 2. Cirrhotic liver with multiple hypodense lesions worrisome for metastasis. Correlate with clinically reported recent biopsy. 3. Incidental colonic diverticulosis, splenomegaly, nonobstructing right renal micro-calculus, small right renal cyst, arteriosclerotic disease with distal AAA, and chronic bony findings. Comment: Preliminary interpretation made by [facility]. No critical discrepancy.
[2022-05-14] MEDS: NORCO 5/325 MG PO PRN ×2 (09:33→20:07)
[2022-05-14] MEDS: Zocor 10MG PO SCH (12:29)
[2022-05-14] MEDS: Pepcid 20 MG PO SCH ×2 (12:29→22:11)
[2022-05-14] MEDS: Klor Con PO SCH (12:29)
[2022-05-14] MEDS: PLAVIX Tablet PO SCH (12:29)
[2022-05-14] MEDS: Coreg PO SCH ×2 (12:29→22:11)
[2022-05-14] MEDS: Glucotrol Xl 2.5 MG PO SCH (13:03)
[2022-05-14] MEDS: ECOTRIN 81 MG PO SCH (14:59)
[2022-05-15 07:45] VITALS: BP 147/68; PULSE 52; O2SAT 95
[2022-05-15] MEDS: Glucotrol Xl 2.5 MG PO SCH (08:57)
[2022-05-15] MEDS: Coreg PO SCH (09:36)
[2022-05-15] MEDS: ECOTRIN 81 MG PO SCH (09:36)
[2022-05-15] MEDS: NORCO 5/325 MG PO PRN (09:36)
[2022-05-15] MEDS: PLAVIX Tablet PO SCH (09:37)
[2022-05-15] MEDS: Pepcid 20 MG PO SCH (09:37)
[2022-05-15] MEDS: Klor Con PO SCH (09:37)
[2022-05-15] MEDS: Zocor 10MG PO SCH (09:37)
[2022-05-15] MEDS ORDERED: NON-FORMULARY ITEM (Rosuvastatin Calcium [Rosuvastatin Calcium] 5 MG Tablet) PO SCH (10:00)
[2022-05-15] MEDS ORDERED: GLIPIZIDE PO SCH (10:00)
--- NOTE | 2022-05-15 10:35 | SSS ---
DISCHARGE DIAGNOSES: 1) METASTATIC PANCREATIC ADENOCARCINOMA. 2) SMALL NONOCCLUSIVE PULMONARY EMBOLI. HISTORY: The patient is an 82-year-old white male patient who is receiving work up for colon cancer in [place]. He recently had endoscopic evaluation with biopsies of the pancreas which came back as adenocarcinoma. It appears to be metastatic at this point. The patient was admitted to the hospital due to complaints of chest pain that he had. The evaluation showed that the patient had small nonocclusive pulmonary emboli. He apparently developed these because he had been off of his Plavix and aspirin for the biopsies. The patient is currently sitting up on the side of the bed looking back to his usual state of health. He is unsure about his follow ups for his evaluation in [place]. Apparently his daughter from [place] in that area, had been taking him up for his visits. The patient currently lives alone. He does have a sister here locally but her health is not great either. PAST MEDICAL/SURGICAL HISTORY: Significant for hyperlipidemia, hypertension, coronary artery disease, diabetes mellitus type II, previous diverticulitis and gastroesophageal reflux disease. He has had coronary artery bypass graft x2 as well as heart catheterization, previous back surgery. HOME MEDICATIONS: Currently are metformin 500 mg twice a day, potassium 10 mEq a day, carvedilol 6.25 mg b.i.d., famotidine 20 mg b.i.d. and glipizide 5 mg daily. ALLERGIES: ROSUVASTATIN. BRILINTA. PHYSICAL EXAMINATION: Vital signs on admission showed his temperature to be 97.6F, pulse 57, respiratory rate 18 and blood pressure 157/81. O2 saturation 99%. HEENT: Normocephalic, atraumatic. Pupils equal round reactive to light. Extraocular movements intact. Oropharynx is pink and moist. NECK: Supple without lymphadenopathy, thyromegaly or JVD. CHEST: Clear to auscultation. HEART: Regular rate and rhythm, without murmurs, rubs or gallops. ABDOMEN: Soft, minimally tender. No palpable masses. EXTREMITIES: Without cyanosis, clubbing or edema. NEUROLOGIC: He patient is alert and oriented x3 with no focal deficits noted. LAB DATA AND TESTS: Laboratory studies in the emergency room revealed hemoglobin 11.9, white blood cell count 5.1, PLT count slightly low at 131,000. Electrolytes were essentially normal. BUN 12, creatinine 0.81. The patient had a D-dimer at 2.12 which resulted in his CT scan of the chest which showed small nonocclusive pulmonary emboli. HOSPITAL COURSE: Due to the pain the patient was admitted to the hospital. He was given Lovenox for his pulmonary emboli. The patient by the next morning was seen and given [place] for pain control and the patient reported that this was much improved on the [place]. He is currently feeling good and requested to go home. The patient will be discharged home on his usual medications with aspirin 81 mg, Plavix 75 mg daily. He will be given [place] 5/325 mg every 4 hours basis PRN for pain. We will arrange for home visiting nurses to see him as well and try to get a follow up for him as he is currently unaware of when this may be in [place] to follow up on his biopsy and plan for the treatment of the adenocarcinoma of the pancreas.
[2022-05-16] MEDS ORDERED: Glucophage 500 MG PO SCH (08:00)
== END 2022-05-15 10:16 | disposition home or self-care (01) ==
LOC: ED → MED SURG 05:05
PROVIDERS: ADMIT Family Medicine; ATTEND Family Medicine
DX: C25.9 Malignant neoplasm of pancreas, unspecified (principal); I26.99 Other pulmonary embolism without acute cor pulmonale; R07.9 Chest pain, unspecified; I10 Essential (primary) hypertension; I25.10 Atherosclerotic heart disease of native coronary artery without angina pectoris; E78.5 Hyperlipidemia, unspecified; E11.9 Type 2 diabetes mellitus without complications; Z79.01 Long term (current) use of anticoagulants; Z79.899 Other long term (current) drug therapy; Z20.828 Contact with and (suspected) exposure to other viral communicable diseases; Z85.828 Personal history of other malignant neoplasm of skin
CPT/HCPCS: 0241U; 36000; 36415; 71260; 74176; 80053; 82947; 83880; 84484; 85025; 85379; 93005; 93041; 94760; 96372; 99285; G0378; J1650; J1815; A9270-GY

== ENCOUNTER 2022-07-02 07:13 | Inpatient (IN) | payer MEDICARE, BC ==
--- NOTE | 2022-07-02 07:14 | ERPHSYRPT ---
- History of Present Illness Time Seen by Provider: 07/02/22 07:14 Source: patient, EMS Exam Limitations: no limitations Physician History: This is an 82-year-old white male patient of Dr. Main and roller man Dr. Pearson who presents from home via EMS transport with shortness of air. Patient has recurrent episodes of this. Patient was just discharged from [facility] approximately 1 week ago and over the last week he has become progressively short of air. Patient describes a procedure of thoracentesis to remove fluid from his lungs at [facility]. Patient arrived to the patient's home and his room air oxygenation was 88%. Patient does not wear oxygen at home. Patient has a history of pancreatic cancer and liver cancer. Patient also has a history of hyperlipidemia, diabetes, hypertension, coronary artery disease (CABG and cardiac stents) as well as gastroesophageal reflux disease. Patient is on Plavix. Patient states he has some mild localized nonradiating left anterior chest pressure Timing/Duration: today Activities at Onset: activity Severity of Dyspnea-Max: moderate Severity of Dyspnea-Current: moderate Possible Cause: occasional episodes Modifying Factors: Improves With: activity (Worsen symptoms), oxygen (Improved symptoms) Associated Symptoms: chest pain/discomfort (Localized left anterior chest pressuremild nonradiating), weakness (Chronic) Allergies/Adverse Reactions: atorvastatin [From Lipitor] Allergy (Unknown, Verified 05/14/22 04:52) metoprolol Allergy (Unknown, Verified 05/14/22 04:52) pitavastatin [From Livalo] Allergy (Unknown, Verified 05/14/22 04:52) ranolazine [From Ranexa] Allergy (Unknown, Verified 05/14/22 04:52) rosuvastatin [From Crestor] Allergy (Unknown, Verified 05/14/22 04:52) ticagrelor [From Brilinta] Allergy (Unknown, Verified 05/14/22 04:52) Home Medications: Metformin HCl 500 mg [Glucophage 500 MG] 500 mg PO BID 06/15/16 [History] Potassium Chloride Tab* [Klor Con] 10 meq PO DAILY 06/15/16 [History] Carvedilol 3.125 mg [Coreg 3.125 MG] 6.25 mg PO BID 11/26/18 [History] Famotidine 20 mg [Pepcid 20 MG] 20 mg PO BID 11/26/18 [History] Glipizide [Glipizide ER] 5 mg DAILY 11/26/18 [History] Rosuvastatin Calcium 5 mg PO DAILY 05/14/22 [History] Hx Tetanus, Diphtheria Vaccination/Date Given: Yes Hx Influenza Vaccination/Date Given: Yes Hx Pneumococcal Vaccination/Date Given: Yes Travel Risk - International Travel Have you traveled outside of the country in past 3 weeks: No - Coronavirus Screening Are you exhibiting any of the following symptoms?: No Close contact with a COVID-19 positive Pt in past 14-21 Days: No - Vaccine Status Have you recieved a Covid-19 vaccination: Yes 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 - Vaccination Dates Date of 2cond Vaccination (if applicable): 2020 Comment: PT states Both booster shots - Review of Systems Constitutional: Weakness Eyes: No Symptoms Ears, Nose, & Throat: No Symptoms Respiratory: Dyspnea on Exertion (SEE) Cardiac: Chest Pain (Described as nonradiating, mild left anterior chest pressure) Abdominal/Gastrointestinal: No Symptoms Genitourinary Symptoms: No Symptoms Musculoskeletal: No Symptoms Skin: No Symptoms Neurological: No Symptoms Psychological: No Symptoms Endocrine: No Symptoms Hematologic/Lymphatic: No Symptoms Immunological/Allergic: No Symptoms All Other Systems: Reviewed and Negative - Past Medical History Pertinent Past Medical History: Yes Neurological History: No Pertinent History ENT History: Cataracts Cardiac History: Congestive Heart Failure, Coronary Artery Disease, Hypertension, Myocardial Infarction ([place]), Other Respiratory History: No Pertinent History Endocrine Medical History: Diabetes Type II Musculoskeletal History: No Pertinent History GI Medical History: Diverticulitis, GERD History: No Pertinent History Psycho-Social History: Anxiety Male Reproductive Disorders: No Pertinent History Other Medical History: Skin cancer, 2 CABG - Past Surgical History Past Surgical History: Yes Neuro Surgical History: No Pertinent History Cardiac: CABG, Cardiac Catheterization, Cardiac Stent Respiratory: No Pertinent History Gastrointestinal: Cholecystectomy Genitourinary: No Pertinent History Musculoskeletal: No Pertinent History, Other Male Surgical History: No Pertinent History Other Surgical History: BACK SURGERY-- Pancreatic biopsy, liver biopsy - Social History Smoking Status: Never smoker Exposure to second hand smoke: No Drug Use: none Patient Lives Alone: No - Nursing Vital Signs Nursing Vital Signs: Initial Vital Signs Temperature 97.7 F 07/02/22 07:19 Pulse Rate 82 07/02/22 07:19 Respiratory Rate 22 07/22 07:19 Blood Pressure 111/61 07/02/22 07:19 O2 Sat by Pulse Oximetry 99 07/02/22 07:19 Pain Scale Pain Intensity 0 - Physical Exam General Appearance: mild distress, alert, anxiety Eye Exam: PERRL/EOMI, eyes nml inspection Ears, Nose, Throat Exam: hearing grossly normal, normal ENT inspection, normal pharynx Neck Exam: normal inspection, non-tender, supple, full range of motion Respiratory Exam: normal breath sounds, lungs clear, airway intact, No chest tenderness, No respiratory distress Cardiovascular/Chest Exam: normal heart sounds, regular rate/rhythm, normal peripheral pulses Abdominal/Gastrointestinal Exam: soft, normal bowel sounds, No tenderness Rectal Exam: not done Extremity Exam: non-tender, normal range of motion, pedal edema (Trace to 1+ bilateral feet and ankle) Neurologic Exam: alert, oriented x 3, cooperative, night clerk auditor II-XII nml as tested, normal mood/affect, sensation nml Skin Exam: normal color, warm, dry, pale (? Mild) Lymphatic Exam: No adenopathy SpO2 Interpretation: normal - Course Nursing assessment & vital signs reviewed: Yes EKG Interpreted by Me: RATE (76), NORMAL QRS (Lateral leads), Non-specific ST Changes, Other (Prolonged VA interval. Multiple PVCs. New prolonged VA interval. New PVCs.) Ordered Tests: Active Orders 24 hr Category Date Time Status Seo Executive STAT Care 07/02/22 07:45 Active EKG-ER Only STAT Care 07/02/22 07:44 Active IV Insertion STAT Care 07/02/22 07:44 Active Pulse Oximetry (ED) STAT Care 07/02/22 07:44 Active CHEST 1 VIEW (PORTABLE) Stat Exams 07/02/22 07:45 Completed CHEST WITH CONTRAST [CT] Stat Exams 07/02/22 09:24 Completed CBC W DIFF Stat Lab 07/02/22 07:44 Completed CMP Stat Lab 07/02/22 07:44 Completed D-DIMER QUANTITATIVE Stat Lab 07/02/22 07:44 Completed Lactic Acid Stat Lab 07/02/22 08:00 Completed Lactic Acid Stat Lab 07/02/22 10:05 Received NT PRO BNP Stat Lab 07/02/22 07:44 Completed TROPONIN Q4H Lab 07/02/22 07:44 Completed TROPONIN Q4H Lab 07/02/22 11:45 Ordered TROPONIN Q4H Lab 07/02/22 15:45 Ordered Transfer Order Routine Transfer 07/02/22 Ordered Medication Summary Generic Name Dose Route Start Last Admin Trade Name Ahsan PRN Reason Stop Dose Admin Sodium Chloride 500 mls @ 50 mls/hr 07/02/22 09:30 07/02/22 10:45 Sodium Chloride 0.9% 500 Ml IV 08/01/22 09:29 50 mls/hr .Q10H GLORIA Administration Discontinued Medications Generic Name Dose Route Start Last Admin Trade Name Ahsan PRN Reason Stop Dose Admin Furosemide 40 mg 07/02/22 09:24 07/02/22 10:45 Furosemide 40 Mg/4 Ml Vial IV 07/02/22 09:25 40 mg STAT ONE Administration Furosemide Confirm 07/02/22 10:41 Furosemide 40 Mg/4 Ml Vial Administered 07/02/22 10:42 Dose 40 mg .ROUTE .Auspherix ONE Lab/Rad Data: Laboratory Result Diagrams 07/02/22 07:44 07/02/22 07:44 Laboratory Results 07/02/22 07/02/22 07/02/22 Range/Units 08:15 08:00 07:44 WBC (4.0-10.5) x10^3/uL RBC (4.1-5.6) x10^6/uL Hgb (12.5-18.0) g/dL Hct (42-50) % MCV (78-100) fL MCH (26-32) pg MCHC (32-36) g/dL RDW (11.5-14.0) % Plt Count (150-450) x10^3/uL MPV (7.5-11.0) fL Gran % (36.0-66.0) % Immature Gran % (Auto) (0.00-0.4) % Nucleat RBC Rel Count (0.00-0.1) % Eos # (Auto) (0-0.5) x10^3/uL Immature Gran # (Auto) (0.00-0.03) x10^3u/L Absolute Lymphs (auto) (1.0-4.6) x10^3/uL Absolute Monos (auto) (0.0-1.3) x10^3/uL Absolute Nucleated RBC (0.00-0.01) x10^3u/L Lymphocytes % (24.0-44.0) % Monocytes % (0.0-12.0) % Eosinophils % (0.00-5.0) % Basophils % (0.0-0.4) % Absolute Granulocytes (1.4-6.9) x10^3/uL Basophils # (0-0.4) x10^3/uL D-Dimer (0.0-0.50) mg/L Sodium (137-145) mmol/L Potassium (3.5-5.1) mmol/L Chloride (98-107) mmol/L Carbon Dioxide (22-30) mmol/L Anion Gap (5-15) MEQ/L BUN (9-20) mg/dL Creatinine (0.66-1.25) mg/dL Estimated GFR ML/MIN Glucose (74-106) mg/dL Lactic Acid 3.3 H (0.4-2.0) Calcium (8.4-10.2) mg/dL Total Bilirubin (0.2-1.3) mg/dL AST (17-59) U/L ALT (0-50) U/L Alkaline Phosphatase (38-126) U/L Troponin I < 0.012 (0.000-0.034) ng/mL NT-Pro-B Natriuret Pep (0-1800) pg/mL Serum Total Protein (6.3-8.2) g/dL Albumin (3.5-5.0) g/dL Influenza Type A Ag NEGATIVE (NEGATIVE) Influenza Type B Ag NEGATIVE (NEGATIVE) RSV (PCR) NEGATIVE (Negative) SARS-CoV-2 (PCR) NEGATIVE (NEGATIVE) Slides for Path Review 07/02/22 07/02/22 07/02/22 Range/Units 07:44 07:44 07:44 WBC 10.7 H (4.0-10.5) x10^3/uL RBC 3.30 L (4.1-5.6) x10^6/uL Hgb 10.8 L (12.5-18.0) g/dL Hct 33.5 L (42-50) % MCV 101.5 H (78-100) fL MCH 32.7 H (26-32) pg MCHC 32.2 (32-36) g/dL RDW 17.8 H (11.5-14.0) % Plt Count 323 (150-450) x10^3/uL MPV 9.4 (7.5-11.0) fL Gran % 68.8 H (36.0-66.0) % Immature Gran % (Auto) 0.4 (0.00-0.4) % Nucleat RBC Rel Count 0.0 (0.00-0.1) % Eos # (Auto) 0.15 (0-0.5) x10^3/uL Immature Gran # (Auto) 0.04 H (0.00-0.03) x10^3u/L Absolute Lymphs (auto) 1.38 (1.0-4.6) x10^3/uL Absolute Monos (auto) 1.75 H (0.0-1.3) x10^3/uL Absolute Nucleated RBC 0.00 (0.00-0.01) x10^3u/L Lymphocytes % 12.9 L (24.0-44.0) % Monocytes % 16.4 H (0.0-12.0) % Eosinophils % 1.4 (0.00-5.0) % Basophils % 0.1 (0.0-0.4) % Absolute Granulocytes 7.34 H (1.4-6.9) x10^3/uL Basophils # 0.01 (0-0.4) x10^3/uL D-Dimer 3.10 H* (0.0-0.50) mg/L Sodium 135 L (137-145) mmol/L Potassium 3.7 (3.5-5.1) mmol/L Chloride 98 (98-107) mmol/L Carbon Dioxide 27 (22-30) mmol/L Anion Gap 13.6 (5-15) MEQ/L BUN 28 H (9-20) mg/dL Creatinine 1.22 (0.66-1.25) mg/dL Estimated GFR > 60.0 ML/MIN Glucose 129 H (74-106) mg/dL Lactic Acid (0.4-2.0) Calcium 7.7 L (8.4-10.2) mg/dL Total Bilirubin 1.30 (0.2-1.3) mg/dL AST 38 (17-59) U/L ALT 22 (0-50) U/L Alkaline Phosphatase 333 H (38-126) U/L Troponin I (0.000-0.034) ng/mL NT-Pro-B Natriuret Pep 1830 H (0-1800) pg/mL Serum Total Protein 5.7 L (6.3-8.2) g/dL Albumin 2.6 L (3.5-5.0) g/dL Influenza Type A Ag (NEGATIVE) Influenza Type B Ag (NEGATIVE) RSV (PCR) (Negative) SARS-CoV-2 (PCR) (NEGATIVE) Slides for Path Review YES - Progress Progress: improved, re-examined Air Movement: good Progress Note: 07/02/22 09:26 Chest x-ray shows pulmonary edema with moderate left and small right pleural effusions with compression atelectasis. Findings consistent with congestive heart failure. Cannot exclude superimposed pneumonia. 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 He has enlarging mediastinal left hilar adenopathy which is also presumed to be metastatic. There is a cirrhotic liver with liver mets. These are findings on the CTA of the chest. I spoke with Dr. Bello who is the hospitalist on today. We will admit the patient to the hospital and provide the patient with oxygen supplementation and discussed with the patient regarding repeat thoracentesis and obtain a discharge planning consultation for hospice. Patient is DNR. Blood Culture(s) Obtained: No Antibiotics given: No Discussed with : Celestino Counseled pt/family regarding: lab results, diagnosis, rad results - Departure Departure Disposition: In-patient Admission Clinical Impression: Shortness of breath, Pleural effusion, CHF (congestive heart failure), Hepatic metastasis, Pulmonary metastasis, Pancreatic neoplasm Condition: Fair Critical Care Time: No Referrals: RIANNA MAIN [Primary Care Provider] - Follow up/PCP as directed Instructions: Heart Failure
[2022-07-02 07:58] LABS: Absolute Neutrophil Ct (ANC) 7.34 x10^3/uL (1.4-6.9); Basophil (Absolute #) 0.01 x10^3/uL (0-0.4); Eosinophil % 1.4 % (0.00-5.0); Eosinophil (Absolute #) 0.15 x10^3/uL (0-0.5); Hematocrit 33.5 % (42-50); Hemoglobin 10.8 g/dL (12.5-18.0); Lymphocyte (Absolute #) 1.38 x10^3/uL (1.0-4.6); Lymphocytes % 12.9 % (24.0-44.0); Mean Cell Volume 101.5 fL (78-100); Mean Corpuscular Hemoglobin 32.7 pg (26-32); Mean Corpuscular Hgb Concent. 32.2 g/dL (32-36); Mean Platelet Volume 9.4 fL (7.5-11.0); Monocyte (Absolute #) 1.75 x10^3/uL (0.0-1.3); Monocytes % 16.4 % (0.0-12.0); Neutrophil % 68.8 % (36.0-66.0); Platelet Count 323 x10^3/uL (150-450); Red Cell Distribution Width 17.8 % (11.5-14.0); White Blood Count 10.7 x10^3/uL (4.0-10.5)
[2022-07-02 08:42] LABS: ALBUMIN 2.6 g/dL (3.5-5.0); ALKALINE PHOSPHATASE 333 U/L (38-126); ANION GAP 13.6 MEQ/L (5-15); BLOOD UREA NITROGEN 28 mg/dL (9-20); CHLORIDE 98 mmol/L (98-107); Calcium 7.7 mg/dL (8.4-10.2); Carbon Dioxide 27 mmol/L (22-30); Creatinine 1 1.22 mg/dL (0.66-1.25); EST GLOMERULAR FILTRATION RATE > 60.0 ML/MIN; Glucose 129 mg/dL (74-106); NT PRO BNP 1830 pg/mL (0-1800); Potassium 3.7 mmol/L (3.5-5.1); SGOT/AST 38 U/L (17-59); SGPT/ALT 22 U/L (0-50); SODIUM 135 mmol/L (137-145); Total Protein 5.7 g/dL (6.3-8.2)
--- NOTE | 2022-07-02 08:59 | XRAY ---
Indication: Short of breath. Comparison: November 26, 2018. Portable chest demonstrates new pulmonary edema and moderate left/small right pleural effusions with compressive atelectasis. Heart enlarged again with CABG. Findings favor cardiac decompensation/CHF. Superimposed pneumonia not completely excluded. Bony thorax intact again with osteopenia and degenerative changes.
[2022-07-02 09:07] LABS: INFLUENZA A NEGATIVE (NEGATIVE); INFLUENZA B NEGATIVE (NEGATIVE); RESPIRATORY SYNCTIAL VIRUS NEGATIVE (Negative); SARS-CoV-2 Xpert Express NEGATIVE (NEGATIVE)
[2022-07-02 09:20] LABS: Slide Review 1 YES
[2022-07-02] MEDS ORDERED: Lasix 40 MG/4 ML IV ONE (09:24)
[2022-07-02] MEDS ORDERED: Sodium Chloride 0.9% 500 ML 500 ML IV SCH (09:30)
[2022-07-02] MEDS ORDERED: Lasix 40 MG/4 ML ONE (10:41)
--- NOTE | 2022-07-02 10:46 | XRAY ---
Indication: Short of breath and chest pain. Elevated d-dimer. Multiple contiguous axial images obtained through the chest using 100 cc Isovue 370 contrast and PE protocol. Comparison: May 14, 2022 Good opacification of the pulmonary arteries including lobar and segmental branches. Mild respiration artifact limits evaluation of the more distal lobar/segmental branches. No pulmonary embolus. Heart borderline enlarged again with CABG. Aorta again mildly arteriosclerotic without aneurysm/dissection. Interval enlarging 1.7 x 2.2 cm subcarinal and 2.6 x 1.6 cm left hilar adenopathy. Lungs demonstrate new large left/small right pleural effusions with bibasilar compressive atelectasis. Again numerous bilateral metastatic nodules more than before. Bony thorax again demonstrate osteopenia, degenerative changes throughout the spine, and sternotomy wires. Limited upper abdomen again demonstrates cirrhotic appearing liver with hypodense metastatic lesions. Stable right renal cyst and nonobstructing right renal calculus. Impression: 1. Pulmonary embolus evaluation limited by respiration artifact. No obvious pulmonary embolus. 2. Worsening diffuse bilateral pulmonary metastasis with new large left/small right effusions. 3. Enlarging mediastinal/left hilar adenopathy also presumed metastatic. 4. Again cirrhotic liver with hepatic metastasis. 5. Stable chronic findings including right renal cyst, nonobstructing right renal calculus, and chronic bony findings.
[2022-07-02] MEDS ORDERED: Zofran 4 MG/2 ML VIAL IV PRN (11:32)
[2022-07-02] MEDS ORDERED: TYLENOL 325 MG PO PRN (11:32)
[2022-07-02] MEDS ORDERED: ECOTRIN 81 MG PO SCH (17:00)
[2022-07-02] MEDS: Miralax Powder 17GM PACKET PO SCH (17:15)
[2022-07-02] MEDS: Klor Con PO SCH (17:15)
[2022-07-02] MEDS: Lasix 40 MG/4 ML IV SCH (21:12)
[2022-07-02] MEDS: Pepcid 20 MG PO SCH (21:12)
[2022-07-02] MEDS: Coreg PO SCH (21:12)
[2022-07-02] MEDS ORDERED: ELIQUIS 2.5 MG TABLET PO SCH (22:00)
[2022-07-02] MEDS ORDERED: Coreg 3.125 MG PO SCH (22:00)
[2022-07-02] MEDS ORDERED: NON-FORMULARY ITEM (Apixaban*** [Eliquis 5 Mg Tablet***] 5 MG Tablet) PO SCH (22:00)
[2022-07-03 07:02] LABS: Basophil (Absolute #) 0.01 x10^3/uL (0-0.4); Eosinophil % 2.3 % (0.00-5.0); Eosinophil (Absolute #) 0.22 x10^3/uL (0-0.5); Lymphocyte (Absolute #) 0.95 x10^3/uL (1.0-4.6); Mean Cell Volume 100.6 fL (78-100); Mean Corpuscular Hemoglobin 32.5 pg (26-32); Mean Corpuscular Hgb Concent. 32.3 g/dL (32-36); Mean Platelet Volume 9.2 fL (7.5-11.0); Monocyte (Absolute #) 1.58 x10^3/uL (0.0-1.3); Monocytes % 16.6 % (0.0-12.0); Neutrophil % 70.5 % (36.0-66.0); Platelet Count 260 x10^3/uL (150-450); Red Blood Count 3.08 x10^6/uL (4.1-5.6); Red Cell Distribution Width 17.9 % (11.5-14.0); White Blood Count 9.5 x10^3/uL (4.0-10.5)
--- NOTE | 2022-07-03 09:00 | PCM.HP ---
History of Present Illness - Chief Complaint Chief Complaint: CHF History of Present Illness: is a 82 year old male patient of Dr Paz, he has a history of metastatic pancreatic cancer and is not receiving any treatment, he lives with his sister currently. He has been more short of breath as of late, has known pulmonary mets and a large left pleural effusion. he feels better on oxygen since admission, he is able to get up to the restroom and his appetite is ok. - Review of Systems Constitutional: No Fever, No Chills Respiratory: Short Of Breath, No Cough Cardiac: No Chest Pain, No Edema, No Syncope Abdominal/Gastrointestinal: No Abdominal Pain, No Nausea, No Vomiting, No Diarrhea Skin: No Rash Medications & Allergies Home Medications: Home Medication List Metformin HCl 500 mg [Glucophage 500 MG] 500 mg PO BID 06/15/16 [History Confirmed 07/02/22] Potassium Chloride Tab* [Klor Con] 10 meq PO DAILY 06/15/16 [History Confirmed 07/02/22] Carvedilol 3.125 mg [Coreg 3.125 MG] 6.25 mg PO BID 11/26/18 [History Confirmed 07/02/22] Famotidine 20 mg [Pepcid 20 MG] 20 mg PO BID 11/26/18 [History Confirmed 07/02/22] Glipizide [Glipizide ER] 5 mg DAILY 11/26/18 [History Confirmed 07/02/22] Rosuvastatin Calcium 5 mg PO DAILY 05/14/22 [History Confirmed 07/02/22] Aspirin EC 81 mg [Ecotrin 81 mg] 81 mg PO DAILY 90 Days #90 05/15/22 [Rx Confirmed 07/02/22] Polyethylene Glycol 3350 [Miralax] 17 gm PO DAILY 90 Days #90 05/15/22 [Rx Confirmed 07/02/22] Apixaban [Eliquis 5 mg Tablet] 5 mg PO BID 07/02/22 [History Confirmed 07/02/22] Furosemide 40 mg [Lasix 40 MG] 40 mg PO DAILY 07/02/22 [History Confirmed 07/02/22] Meclizine HCl 25 mg [Antivert 25 mg] 25 mg PO TIDPRN PRN 07/02/22 [History Confirmed 07/02/22] Allergies/Adverse Reactions: Allergies Allergy/AdvReac Type Severity Reaction Status Date / Time atorvastatin [From Lipitor] Allergy Mild Verified 07/02/22 12:10 metoprolol Allergy Mild Verified 07/02/22 12:10 pitavastatin [From Livalo] Allergy Mild Verified 07/02/22 12:10 ranolazine [From Ranexa] Allergy Mild Verified 07/02/22 12:10 rosuvastatin [From Crestor] Allergy Mild Verified 07/02/22 12:10 ticagrelor [From Brilinta] Allergy Mild Verified 07/02/22 12:10 - Past Medical History Past Medical History: Yes Neurological History: No Pertinent History ENT History: Cataracts Cardiac History: Congestive Heart Failure, Coronary Artery Disease, Hypertension, Myocardial Infarction ([place]), Other Respiratory History: No Pertinent History Endocrine Medical History: Diabetes Type II Musculoskelatal History: No Pertinent History GI Medical History: Diverticulitis, GERD History: No Pertinent History Pyscho-Social History: Anxiety Male Reproductive Disorders: No Pertinent History Comment: Skin cancer, 2 CABG - Past Surgical History Past Surgical History: Yes Neuro Surgical History: No Pertinent History Cardiac History: CABG, Cardiac Catheterization, Cardiac Stent Respiratory Surgery: No Pertinent History GI Surgical History: Cholecystectomy Genitourinary Surgical Hx: No Pertinent History Musculskeletal Surgical Hx: No Pertinent History, Other Male Surgical History: No Pertinent History Other Surgical History: BACK SURGERY-- Pancreatic biopsy, liver biopsy - Social History Smoking Status: Never smoker Exposure to second hand smoke: No Alcohol: None Drug Use: none - Physical Exam Vital Signs: Vital Signs - 24 hr Temp Pulse Resp BP Pulse Ox 07/03/22 06:59 96.2 F 62 18 87/49 99 07/03/22 04:00 97.5 F 62 20 143/50 98 07/02/22 23:29 97.3 F 78 20 110/61 96 07/02/22 20:00 97.8 F 77 22 116/57 96 07/02/22 16:00 98 F 79 16 98/54 96 07/02/22 11:51 97.8 F 59 L 16 132/71 94 L 07/02/22 11:38 97.8 F 59 L 16 132/71 94 L 07/02/22 10:53 97.6 F 66 20 112/62 99 07/02/22 09:03 97.6 F 73 20 110/62 98 General Appearance: no apparent distress, alert Neurologic Exam: alert, oriented x 3 Respiratory Exam: diminished breath sounds Cardiovascular Exam: regular rate/rhythm, normal heart sounds, normal peripheral pulses Gastrointestinal/Abdomen Exam: soft, normal bowel sounds, No tenderness, No mass Extremity Exam: normal inspection, normal range of motion, pelvis stable Skin Exam: normal color, warm, dry, No rash Results - Labs Lab/Micro Results: Lab Results-Last 24 Hours 07/02/22 07/02/22 07/02/22 Range/Units 07:44 07:44 08:15 WBC (4.0-10.5) x10^3/uL RBC (4.1-5.6) x10^6/uL Hgb (12.5-18.0) g/dL Hct (42-50) % MCV (78-100) fL MCH (26-32) pg MCHC (32-36) g/dL RDW (11.5-14.0) % Plt Count (150-450) x10^3/uL MPV (7.5-11.0) fL Gran % (36.0-66.0) % Immature Gran % (Auto) (0.00-0.4) % Nucleat RBC Rel Count (0.00-0.1) % Eos # (Auto) (0-0.5) x10^3/uL Immature Gran # (Auto) (0.00-0.03) x10^3u/L Absolute Lymphs (auto) (1.0-4.6) x10^3/uL Absolute Monos (auto) (0.0-1.3) x10^3/uL Absolute Nucleated RBC (0.00-0.01) x10^3u/L Lymphocytes % (24.0-44.0) % Monocytes % (0.0-12.0) % Eosinophils % (0.00-5.0) % Basophils % (0.0-0.4) % Absolute Granulocytes (1.4-6.9) x10^3/uL Basophils # (0-0.4) x10^3/uL POC Glucometer (74 to 106) mg/dL Lactic Acid (0.4-2.0) Troponin I < 0.012 (0.000-0.034) ng/mL Influenza Type A Ag NEGATIVE (NEGATIVE) Influenza Type B Ag NEGATIVE (NEGATIVE) RSV (PCR) NEGATIVE (Negative) SARS-CoV-2 (PCR) NEGATIVE (NEGATIVE) Slides for Path Review YES 07/02/22 07/02/22 07/02/22 Range/Units 10:05 12:05 16:13 WBC (4.0-10.5) x10^3/uL RBC (4.1-5.6) x10^6/uL Hgb (12.5-18.0) g/dL Hct (42-50) % MCV (78-100) fL MCH (26-32) pg MCHC (32-36) g/dL RDW (11.5-14.0) % Plt Count (150-450) x10^3/uL MPV (7.5-11.0) fL Gran % (36.0-66.0) % Immature Gran % (Auto) (0.00-0.4) % Nucleat RBC Rel Count (0.00-0.1) % Eos # (Auto) (0-0.5) x10^3/uL Immature Gran # (Auto) (0.00-0.03) x10^3u/L Absolute Lymphs (auto) (1.0-4.6) x10^3/uL Absolute Monos (auto) (0.0-1.3) x10^3/uL Absolute Nucleated RBC (0.00-0.01) x10^3u/L Lymphocytes % (24.0-44.0) % Monocytes % (0.0-12.0) % Eosinophils % (0.00-5.0) % Basophils % (0.0-0.4) % Absolute Granulocytes (1.4-6.9) x10^3/uL Basophils # (0-0.4) x10^3/uL POC Glucometer 188 H (74 to 106) mg/dL Lactic Acid 2.6 H (0.4-2.0) Troponin I < 0.012 (0.000-0.034) ng/mL Influenza Type A Ag (NEGATIVE) Influenza Type B Ag (NEGATIVE) RSV (PCR) (Negative) SARS-CoV-2 (PCR) (NEGATIVE) Slides for Path Review 07/02/22 07/02/22 07/03/22 Range/Units 17:10 21:06 06:01 WBC (4.0-10.5) x10^3/uL RBC (4.1-5.6) x10^6/uL Hgb (12.5-18.0) g/dL Hct (42-50) % MCV (78-100) fL MCH (26-32) pg MCHC (32-36) g/dL RDW (11.5-14.0) % Plt Count (150-450) x10^3/uL MPV (7.5-11.0) fL Gran % (36.0-66.0) % Immature Gran % (Auto) (0.00-0.4) % Nucleat RBC Rel Count (0.00-0.1) % Eos # (Auto) (0-0.5) x10^3/uL Immature Gran # (Auto) (0.00-0.03) x10^3u/L Absolute Lymphs (auto) (1.0-4.6) x10^3/uL Absolute Monos (auto) (0.0-1.3) x10^3/uL Absolute Nucleated RBC (0.00-0.01) x10^3u/L Lymphocytes % (24.0-44.0) % Monocytes % (0.0-12.0) % Eosinophils % (0.00-5.0) % Basophils % (0.0-0.4) % Absolute Granulocytes (1.4-6.9) x10^3/uL Basophils # (0-0.4) x10^3/uL POC Glucometer 200 H 169 H (74 to 106) mg/dL Lactic Acid (0.4-2.0) Troponin I < 0.012 (0.000-0.034) ng/mL Influenza Type A Ag (NEGATIVE) Influenza Type B Ag (NEGATIVE) RSV (PCR) (Negative) SARS-CoV-2 (PCR) (NEGATIVE) Slides for Path Review 07/03/22 Range/Units 06:49 WBC 9.5 (4.0-10.5) x10^3/uL RBC 3.08 L (4.1-5.6) x10^6/uL Hgb 10.0 L (12.5-18.0) g/dL Hct 31.0 L (42-50) % MCV 100.6 H (78-100) fL MCH 32.5 H (26-32) pg MCHC 32.3 (32-36) g/dL RDW 17.9 H (11.5-14.0) % Plt Count 260 (150-450) x10^3/uL MPV 9.2 (7.5-11.0) fL Gran % 70.5 H (36.0-66.0) % Immature Gran % (Auto) 0.5 H (0.00-0.4) % Nucleat RBC Rel Count 0.0 (0.00-0.1) % Eos # (Auto) 0.22 (0-0.5) x10^3/uL Immature Gran # (Auto) 0.05 H (0.00-0.03) x10^3u/L Absolute Lymphs (auto) 0.95 L (1.0-4.6) x10^3/uL Absolute Monos (auto) 1.58 H (0.0-1.3) x10^3/uL Absolute Nucleated RBC 0.00 (0.00-0.01) x10^3u/L Lymphocytes % 10.0 L (24.0-44.0) % Monocytes % 16.6 H (0.0-12.0) % Eosinophils % 2.3 (0.00-5.0) % Basophils % 0.1 (0.0-0.4) % Absolute Granulocytes 6.70 (1.4-6.9) x10^3/uL Basophils # 0.01 (0-0.4) x10^3/uL POC Glucometer (74 to 106) mg/dL Lactic Acid (0.4-2.0) Troponin I (0.000-0.034) ng/mL Influenza Type A Ag (NEGATIVE) Influenza Type B Ag (NEGATIVE) RSV (PCR) (Negative) SARS-CoV-2 (PCR) (NEGATIVE) Slides for Path Review Accuchecks Date 07/02/22 Time 16:45 - Radiology Impressions Radiology Exams & Impressions: Radiology Procedures Category Date Time Status CHEST 1 VIEW (PORTABLE) Stat Exams 07/02/22 07:45 Completed CHEST WITH CONTRAST [CT] Stat Exams 07/02/22 09:24 Completed GUIDANCE OF NEEDLE PLACEMENT [CT] Routine Exams 07/03/22 08:53 Ordered - Other Procedures and Tests Respiratory Therapy 07/02/22 11:32 Oxygen Nasal Cannula 2 lpm Assessment/Plan (1) 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 his care should focus on palliation at this time and keeping him home, he understands. 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 he understands Code(s): J90 - PLEURAL EFFUSION, NOT ELSEWHERE CLASSIFIED
[2022-07-03 09:10] LABS: Slide Review 1 YES
[2022-07-03 09:37] LABS: ALBUMIN 2.4 g/dL (3.5-5.0); ALKALINE PHOSPHATASE 316 U/L (38-126); ANION GAP 9.8 MEQ/L (5-15); BLOOD UREA NITROGEN 27 mg/dL (9-20); CHLORIDE 98 mmol/L (98-107); Calcium 7.6 mg/dL (8.4-10.2); Carbon Dioxide 30 mmol/L (22-30); Creatinine 1 1.12 mg/dL (0.66-1.25); EST GLOMERULAR FILTRATION RATE > 60.0 ML/MIN; Glucose 172 mg/dL (74-106); Potassium 3.3 mmol/L (3.5-5.1); SGOT/AST 32 U/L (17-59); SGPT/ALT 20 U/L (0-50); SODIUM 135 mmol/L (137-145); Total Protein 5.5 g/dL (6.3-8.2)
[2022-07-03 09:47] LABS: NT PRO BNP 2030 pg/mL (0-1800)
[2022-07-03] MEDS ORDERED: FLUZONE HIGH-DOSE QUAD 2022-23 IM ONE ×2 (10:00→13:16)
[2022-07-03] MEDS ORDERED: Lasix 40 MG PO SCH (10:00)
[2022-07-03] MEDS: Pepcid 20 MG PO SCH ×2 (10:48→20:32)
[2022-07-03] MEDS: Lasix 40 MG/4 ML IV SCH ×2 (10:48→20:32)
[2022-07-03] MEDS: Coreg PO SCH ×2 (10:48→20:32)
[2022-07-03] MEDS: Klor Con PO SCH (10:48)
[2022-07-03] MEDS: HOLD METFORMIN PRODUCTS FOR 48 HOURS MC SCH (10:49)
[2022-07-03] MEDS: Miralax Powder 17GM PACKET PO SCH (10:49)
[2022-07-04 06:03] LABS: Absolute Neutrophil Ct (ANC) 6.31 x10^3/uL (1.4-6.9); Basophil (Absolute #) 0.02 x10^3/uL (0-0.4); Eosinophil % 2.9 % (0.00-5.0); Eosinophil (Absolute #) 0.26 x10^3/uL (0-0.5); Hemoglobin 9.8 g/dL (12.5-18.0); Lymphocyte (Absolute #) 0.85 x10^3/uL (1.0-4.6); Lymphocytes % 9.6 % (24.0-44.0); Mean Corpuscular Hemoglobin 33.3 pg (26-32); Mean Corpuscular Hgb Concent. 32.7 g/dL (32-36); Mean Platelet Volume 9.5 fL (7.5-11.0); Monocyte (Absolute #) 1.37 x10^3/uL (0.0-1.3); Monocytes % 15.5 % (0.0-12.0); Neutrophil % 71.3 % (36.0-66.0); Platelet Count 238 x10^3/uL (150-450); Red Blood Count 2.94 x10^6/uL (4.1-5.6); Red Cell Distribution Width 17.4 % (11.5-14.0); White Blood Count 8.9 x10^3/uL (4.0-10.5)
[2022-07-04 06:44] LABS: ALBUMIN 2.4 g/dL (3.5-5.0); ALKALINE PHOSPHATASE 330 U/L (38-126); ANION GAP 5.2 MEQ/L (5-15); BLOOD UREA NITROGEN 24 mg/dL (9-20); CHLORIDE 98 mmol/L (98-107); Calcium 7.7 mg/dL (8.4-10.2); Carbon Dioxide 35 mmol/L (22-30); Creatinine 1 1.14 mg/dL (0.66-1.25); EST GLOMERULAR FILTRATION RATE > 60.0 ML/MIN; Glucose 200 mg/dL (74-106); Potassium 3.4 mmol/L (3.5-5.1); SGOT/AST 40 U/L (17-59); SGPT/ALT 23 U/L (0-50); SODIUM 135 mmol/L (137-145); Total Protein 5.4 g/dL (6.3-8.2)
--- NOTE | 2022-07-04 08:32 | PCM.NOTE ---
Date and Time: 07/04/22830 Subjective Assessment: patient feels some better but when up moving has some left lung pain and dyspnea Objective Exam General Appearance: no apparent distress Neurologic Exam: alert, oriented x 3 Respiratory Exam: diminished breath sounds (on left), No accessory muscle use Cardiovascular Exam: regular rate/rhythm, normal heart sounds Gastrointestinal/Abdomen Exam: soft, No tenderness, No mass Extremity Exam: normal inspection, normal range of motion OBJECTIVE DATA Vital Signs: Vital Signs - 24 hr Temp Pulse Resp BP Pulse Ox 07/04/22 08:00 98.2 F 71 16 102/52 99 07/04/22 03:54 97.8 F 74 20 109/57 96 07/04/22 00:00 97.3 F 70 20 95/50 94 L 07/03/22 20:00 97.7 F 72 20 95/55 96 07/03/22 16:00 97.1 F 79 16 119/62 95 07/03/22 11:59 97.3 F 79 16 114/59 93 L Pain Assessment - Last Documented Pain Intensity 0 Intake and Output: Intake & Output 07/01/22 07/02/22 07/03/22 07/04/22 11:59 11:59 11:59 11:59 Intake Total 660 560 Balance 660 560 Weight 76.1 kg 76.1 kg Lab Results: Lab Results-Last 24 Hours 07/03/22 07/03/22 07/03/22 Range/Units 06:49 06:49 16:30 WBC (4.0-10.5) x10^3/uL RBC (4.1-5.6) x10^6/uL Hgb (12.5-18.0) g/dL Hct (42-50) % MCV (78-100) fL MCH (26-32) pg MCHC (32-36) g/dL RDW (11.5-14.0) % Plt Count (150-450) x10^3/uL MPV (7.5-11.0) fL Gran % (36.0-66.0) % Immature Gran % (Auto) (0.00-0.4) % Nucleat RBC Rel Count (0.00-0.1) % Eos # (Auto) (0-0.5) x10^3/uL Immature Gran # (Auto) (0.00-0.03) x10^3u/L Absolute Lymphs (auto) (1.0-4.6) x10^3/uL Absolute Monos (auto) (0.0-1.3) x10^3/uL Absolute Nucleated RBC (0.00-0.01) x10^3u/L Lymphocytes % (24.0-44.0) % Monocytes % (0.0-12.0) % Eosinophils % (0.00-5.0) % Basophils % (0.0-0.4) % Absolute Granulocytes (1.4-6.9) x10^3/uL Basophils # (0-0.4) x10^3/uL Sodium 135 L (137-145) mmol/L Potassium 3.3 L (3.5-5.1) mmol/L Chloride 98 (98-107) mmol/L Carbon Dioxide 30 (22-30) mmol/L Anion Gap 9.8 (5-15) MEQ/L BUN 27 H (9-20) mg/dL Creatinine 1.12 (0.66-1.25) mg/dL Estimated GFR > 60.0 ML/MIN Glucose 172 H (74-106) mg/dL POC Glucometer (74 to 106) mg/dL Hemoglobin A1c 7.06 H (4.5-6.0) % Calcium 7.6 L (8.4-10.2) mg/dL Total Bilirubin 1.00 (0.2-1.3) mg/dL AST 32 (17-59) U/L ALT 20 (0-50) U/L Alkaline Phosphatase 316 H (38-126) U/L NT-Pro-B Natriuret Pep 2030 H (0-1800) pg/mL Serum Total Protein 5.5 L (6.3-8.2) g/dL Albumin 2.4 L (3.5-5.0) g/dL Slides for Path Review YES 07/04/22 07/04/22 07/04/22 Range/Units 05:05 05:05 05:52 WBC 8.9 (4.0-10.5) x10^3/uL RBC 2.94 L (4.1-5.6) x10^6/uL Hgb 9.8 L (12.5-18.0) g/dL Hct 30.0 L (42-50) % MCV 102.0 H (78-100) fL MCH 33.3 H (26-32) pg MCHC 32.7 (32-36) g/dL RDW 17.4 H (11.5-14.0) % Plt Count 238 (150-450) x10^3/uL MPV 9.5 (7.5-11.0) fL Gran % 71.3 H (36.0-66.0) % Immature Gran % (Auto) 0.5 H (0.00-0.4) % Nucleat RBC Rel Count 0.0 (0.00-0.1) % Eos # (Auto) 0.26 (0-0.5) x10^3/uL Immature Gran # (Auto) 0.04 H (0.00-0.03) x10^3u/L Absolute Lymphs (auto) 0.85 L (1.0-4.6) x10^3/uL Absolute Monos (auto) 1.37 H (0.0-1.3) x10^3/uL Absolute Nucleated RBC 0.00 (0.00-0.01) x10^3u/L Lymphocytes % 9.6 L (24.0-44.0) % Monocytes % 15.5 H (0.0-12.0) % Eosinophils % 2.9 (0.00-5.0) % Basophils % 0.2 (0.0-0.4) % Absolute Granulocytes 6.31 (1.4-6.9) x10^3/uL Basophils # 0.02 (0-0.4) x10^3/uL Sodium 135 L (137-145) mmol/L Potassium 3.4 L (3.5-5.1) mmol/L Chloride 98 (98-107) mmol/L Carbon Dioxide 35 H (22-30) mmol/L Anion Gap 5.2 (5-15) MEQ/L BUN 24 H (9-20) mg/dL Creatinine 1.14 (0.66-1.25) mg/dL Estimated GFR > 60.0 ML/MIN Glucose 200 H (74-106) mg/dL POC Glucometer 185 H (74 to 106) mg/dL Hemoglobin A1c (4.5-6.0) % Calcium 7.7 L (8.4-10.2) mg/dL Total Bilirubin 0.90 (0.2-1.3) mg/dL AST 40 (17-59) U/L ALT 23 (0-50) U/L Alkaline Phosphatase 330 H (38-126) U/L NT-Pro-B Natriuret Pep (0-1800) pg/mL Serum Total Protein 5.4 L (6.3-8.2) g/dL Albumin 2.4 L (3.5-5.0) g/dL Slides for Path Review Radiology Exams: Radiology Procedures Category Date Time Status CHEST 1 VIEW (PORTABLE) Stat Exams 07/02/22 07:45 Completed CHEST WITH CONTRAST [CT] Stat Exams 07/02/22 09:24 Completed THORACENTESIS [US] Routine Exams 07/04/22 09:20 Ordered Multi-Disciplinary Progress Notes: Multi-Disciplinary Progress Notes 07/03/22 10:55 Case Management Note by Charlette Vidales REFERRAL FAXED TO [facility]. CALLED AND S/W EVGENY- SHE WILL MEET WITH PATIENT AND FAMILY THIS AFTERNOON. 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 Code(s): J90 - PLEURAL EFFUSION, NOT ELSEWHERE CLASSIFIED
[2022-07-04] MEDS: Coreg PO SCH (10:21)
[2022-07-04] MEDS: HOLD METFORMIN PRODUCTS FOR 48 HOURS MC SCH (10:21)
[2022-07-04] MEDS: Lasix 40 MG/4 ML IV SCH (10:21)
[2022-07-04] MEDS: Klor Con PO SCH (10:21)
[2022-07-04] MEDS: Pepcid 20 MG PO SCH (10:21)
[2022-07-04] MEDS: Miralax Powder 17GM PACKET PO SCH (10:22)
--- NOTE | 2022-07-04 13:51 | PCM.DS ---
Discharge Summary Date of Admission: 07/02/22 11:21 Admitting Physician: POPEYE RICHARDSON Primary Care Provider: [facility] Allergies Allergies atorvastatin [From Lipitor] Allergy (Mild, Verified 07/02/22 12:10) metoprolol Allergy (Mild, Verified 07/02/22 12:10) pitavastatin [From Livalo] Allergy (Mild, Verified 07/02/22 12:10) ranolazine [From Ranexa] Allergy (Mild, Verified 07/02/22 12:10) rosuvastatin [From Crestor] Allergy (Mild, Verified 07/02/22 12:10) ticagrelor [From Brilinta] Allergy (Mild, Verified 07/02/22 12:10) Hospital Summary - Hospital Course Hospital Course: patient was having some left sided chest pain and shortness of breath. known metastatic pancreas cancer. initially planned to do pleuracentesis but Dr Deras reports small pocket and likely not huge benefit. he has agreed to hospice and will go home with their services at this time - Vitals & Intake/Output Vital Signs: Vital Signs Temperature 97.8 F 07/04/22 12:00 Pulse Rate 75 07/04/22 12:00 Respiratory Rate 15 07/04/22 12:00 Blood Pressure 112/55 07/04/22 12:00 O2 Sat by Pulse Oximetry 98 07/04/22 12:00 Intake & Output: Intake & Output 07/02/22 07/03/22 07/04/22 07/05/22 11:59 11:59 11:59 11:59 Intake Total 660 560 Balance 660 560 Weight 76.1 kg 76.1 kg - Lab Result Diagrams: 07/04/22 05:05 07/04/22 05:05 Lab Results-Last 24 Hrs: Lab Results-Last 24 Hours 07/03/22 07/04/22 07/04/22 Range/Units 16:30 05:05 05:05 WBC 8.9 (4.0-10.5) x10^3/uL RBC 2.94 L (4.1-5.6) x10^6/uL Hgb 9.8 L (12.5-18.0) g/dL Hct 30.0 L (42-50) % MCV 102.0 H (78-100) fL MCH 33.3 H (26-32) pg MCHC 32.7 (32-36) g/dL RDW 17.4 H (11.5-14.0) % Plt Count 238 (150-450) x10^3/uL MPV 9.5 (7.5-11.0) fL Gran % 71.3 H (36.0-66.0) % Immature Gran % (Auto) 0.5 H (0.00-0.4) % Nucleat RBC Rel Count 0.0 (0.00-0.1) % Eos # (Auto) 0.26 (0-0.5) x10^3/uL Immature Gran # (Auto) 0.04 H (0.00-0.03) x10^3u/L Absolute Lymphs (auto) 0.85 L (1.0-4.6) x10^3/uL Absolute Monos (auto) 1.37 H (0.0-1.3) x10^3/uL Absolute Nucleated RBC 0.00 (0.00-0.01) x10^3u/L Lymphocytes % 9.6 L (24.0-44.0) % Monocytes % 15.5 H (0.0-12.0) % Eosinophils % 2.9 (0.00-5.0) % Basophils % 0.2 (0.0-0.4) % Absolute Granulocytes 6.31 (1.4-6.9) x10^3/uL Basophils # 0.02 (0-0.4) x10^3/uL Sodium 135 L (137-145) mmol/L Potassium 3.4 L (3.5-5.1) mmol/L Chloride 98 (98-107) mmol/L Carbon Dioxide 35 H (22-30) mmol/L Anion Gap 5.2 (5-15) MEQ/L BUN 24 H (9-20) mg/dL Creatinine 1.14 (0.66-1.25) mg/dL Estimated GFR > 60.0 ML/MIN Glucose 200 H (74-106) mg/dL POC Glucometer (74 to 106) mg/dL Hemoglobin A1c 7.06 H (4.5-6.0) % Calcium 7.7 L (8.4-10.2) mg/dL Total Bilirubin 0.90 (0.2-1.3) mg/dL AST 40 (17-59) U/L ALT 23 (0-50) U/L Alkaline Phosphatase 330 H (38-126) U/L Serum Total Protein 5.4 L (6.3-8.2) g/dL Albumin 2.4 L (3.5-5.0) g/dL 07/04/22 07/04/22 Range/Units 05:52 11:22 WBC (4.0-10.5) x10^3/uL RBC (4.1-5.6) x10^6/uL Hgb (12.5-18.0) g/dL Hct (42-50) % MCV (78-100) fL MCH (26-32) pg MCHC (32-36) g/dL RDW (11.5-14.0) % Plt Count (150-450) x10^3/uL MPV (7.5-11.0) fL Gran % (36.0-66.0) % Immature Gran % (Auto) (0.00-0.4) % Nucleat RBC Rel Count (0.00-0.1) % Eos # (Auto) (0-0.5) x10^3/uL Immature Gran # (Auto) (0.00-0.03) x10^3u/L Absolute Lymphs (auto) (1.0-4.6) x10^3/uL Absolute Monos (auto) (0.0-1.3) x10^3/uL Absolute Nucleated RBC (0.00-0.01) x10^3u/L Lymphocytes % (24.0-44.0) % Monocytes % (0.0-12.0) % Eosinophils % (0.00-5.0) % Basophils % (0.0-0.4) % Absolute Granulocytes (1.4-6.9) x10^3/uL Basophils # (0-0.4) x10^3/uL Sodium (137-145) mmol/L Potassium (3.5-5.1) mmol/L Chloride (98-107) mmol/L Carbon Dioxide (22-30) mmol/L Anion Gap (5-15) MEQ/L BUN (9-20) mg/dL Creatinine (0.66-1.25) mg/dL Estimated GFR ML/MIN Glucose (74-106) mg/dL POC Glucometer 185 H 131 H (74 to 106) mg/dL Hemoglobin A1c (4.5-6.0) % Calcium (8.4-10.2) mg/dL Total Bilirubin (0.2-1.3) mg/dL AST (17-59) U/L ALT (0-50) U/L Alkaline Phosphatase (38-126) U/L Serum Total Protein (6.3-8.2) g/dL Albumin (3.5-5.0) g/dL Micro Results-Entire Visit: Accuchecks Date 07/04/22 Time 12:09 - Procedures and Test Procedures and Tests throughout Hospitalization: Therapy Orders & Screens 07/02/22 11:32 Oxygen Nasal Cannula 2 lpm Comment: Discharge Exam Neurologic Exam: alert, oriented x 3 Respiratory Exam: diminished breath sounds, prolonged expirations Cardiovascular Exam: regular rate/rhythm, normal heart sounds Gastrointestinal/Abdomen Exam: soft, No tenderness, No mass Back Exam: normal inspection, normal range of motion, No CVA tenderness, No vertebral tenderness Final Diagnosis/Problem List - Final Discharge Diagnosis/Problem (1) 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 Current Visit: Yes Status: Acute Assessment & Plan: care is palliative at this time, home on [place] hospice Code(s): C25.9 - MALIGNANT NEOPLASM OF PANCREAS, UNSPECIFIED; C78.7 - SECONDARY MALIG NEOPLASM OF LIVER AND INTRAHEPATIC BILE DUCT (2) 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 Current Visit: Yes Status: Acute Code(s): C25.9 - MALIGNANT NEOPLASM OF PANCREAS, UNSPECIFIED; C78.00 - SECONDARY MALIGNANT NEOPLASM OF UNSPECIFIED LUNG (3) Pleural effusion Current Visit: Yes Status: Acute Code(s): J90 - PLEURAL EFFUSION, NOT ELSEWHERE CLASSIFIED - Discharge Disposition: Home, Self-Care Condition: Fair Prescriptions: Continue Potassium Chloride Tab* [Klor Con] 10 meq PO DAILY Famotidine 20 mg [Pepcid 20 MG] 20 mg PO BID Carvedilol 3.125 mg [Coreg 3.125 MG] 6.25 mg PO BID Polyethylene Glycol 3350 [Miralax] 17 gm PO DAILY 90 Days #90 Apixaban [Eliquis 5 mg Tablet] 5 mg PO BID Furosemide 40 mg [Lasix 40 MG] 40 mg PO DAILY Meclizine HCl 25 mg [Antivert 25 mg] 25 mg PO TIDPRN PRN PRN Reason: Dizziness Discontinued Metformin HCl 500 mg [Glucophage 500 MG] 500 mg PO BID Glipizide [Glipizide ER] 5 mg DAILY Rosuvastatin Calcium 5 mg PO DAILY Aspirin EC 81 mg [Ecotrin 81 mg] 81 mg PO DAILY 90 Days #90 Additional Instructions: [facility] START [facility]. Follow up with: [facility] [Primary Care Provider] -
[2022-07-04 15:54] VITALS: BP 93/52; PULSE 61; O2SAT 94
[2022-07-04] MEDS ORDERED: ELIQUIS 2.5 MG TABLET PO SCH (22:00)
[2022-07-05] MEDS ORDERED: ECOTRIN 81 MG PO SCH (10:00)
== END 2022-07-04 16:45 | disposition hospice, home (50) | DRG 436 ==
LOC: ED 07:13 → MED SURG 11:21
PROVIDERS: ADMIT Family Medicine; ATTEND Family Medicine
DX: C25.9 Malignant neoplasm of pancreas, unspecified (principal); C78.7 Secondary malignant neoplasm of liver and intrahepatic bile duct; C78.00 Secondary malignant neoplasm of unspecified lung; J90 Pleural effusion, not elsewhere classified; I11.0 Hypertensive heart disease with heart failure; I50.9 Heart failure, unspecified; I25.10 Atherosclerotic heart disease of native coronary artery without angina pectoris; E11.9 Type 2 diabetes mellitus without complications; Z20.828 Contact with and (suspected) exposure to other viral communicable diseases; Z79.01 Long term (current) use of anticoagulants; Z79.899 Other long term (current) drug therapy; Z85.828 Personal history of other malignant neoplasm of skin
CPT/HCPCS: 0241U; 36000; 36415; 71045; 71260; 80053; 82947; 83036; 83605; 83880; 84484; 85025; 85379; 93005; 93041; 94760; 96374; 99285; G0008; 90662; J1940; A9270-GY